=== PATIENT | male | born 1935 | race Caucasian/White ===

== ENCOUNTER → 2017-08-03 06:57 | Day surgery (SDC) | payer MEDICARE ==
[~2017-08-03 06:57] MED LIST: Acetaminophen TAB* 325 MG PO PRN; Buffered Lidocaine 0.9% SYRIN* 5 ML/SYR SYRINGE INTRADERM ONE; Buffered Lidocaine 0.9% SYRIN* 5 ML/SYR SYRINGE ONE; Cyclopentolate 1% OPTH.SOL* 2 ML BTL ONE; Ketorolac 0.5% OPHTH (NF) 0.5 % 5 ML BTL ONE; Lidocaine 1% MPF* 2 ML VIAL ONE; Lidocaine 2% EPI 1:200000 MPF* 20 ML VIAL ONE; Midazolam* 1 MG/ML 2 ML VIAL (2 MG) ONE; Neomycin/Polymy/Dex OPTH.SUSP* MAXITROL 0.1% 5 ML ONE; Phenylephrine 2.5% OPTH.SOL* 2 ML BTL ONE; Povidone Iodine 5% OPTH* 30 ML BTL ONE; Proparacaine 0.5% OPHTH.SOL* 15 ML BTL ONE; acetaZOLAMIDE TAB* 250 MG ONE
[2017-08-03 09:51] VITALS: BP 132/85
--- NOTE | 2017-08-03 13:42 | OP ---
OPERATIVE NOTE: DATE OF OPERATION: 08/03/17 DATE OF : 33 SURGEON: Ulises St M.D. PREOPERATIVE DIAGNOSIS: Cataract, left eye. POSTOPERATIVE DIAGNOSIS: Cataract, left eye. OPERATIVE PROCEDURE: Phacoemulsification, left eye with IOL. PROCEDURE: The patient was brought to the operating room after being given 1/2% Alcaine with epineph rine drops in the preoperative area. The eye was prepped and draped in the usual sterile fashion. S terile drape and eyelid speculum were placed. Again, topical 1/2% Alcaine with epinephrine was given . A paracentesis incision was made at the 3 o'clock position with the No.75 blade. Clear cornea inc ision 2.2 x 2.2-mm was created at the 6 o'clock position starting at the anterior limbus using the 2. 2-mm keratome. The anterior chamber was irrigated with 0.4 mL of 1% non-preservative intracameral li docaine and filled with DisCoVisc. A capsulorrhexis was completed using the cystotome and the Utrata forceps. Hydrodissection was performed with balanced salt solution. The lens nucleus was removed wi th the Phacoemulsification handpiece without incident. Cortex was removed with the irrigation-aspira tion handpiece. The capsular bag was re-inflated using DisCoVisc and an [id number] implant was insert ed with the shooter. The irrigation-aspiration handpiece was used to remove all residual DisCoVisc. The eye was refilled with balanced salt solution and the wound checked and found to be watertight. Topical Maxitrol drops were given. [id number]/[facility] #: [id number]
== END | disposition home or self-care (01) ==
LOC: OREAST 06:57
PROVIDERS: ATTEND Specialist
DX: H25.812 Combined forms of age-related cataract, left eye (principal); H40.051 Ocular hypertension, right eye; Z96.1 Presence of intraocular lens
CPT/HCPCS: A9270-GY; J2250; V2632

== ENCOUNTER 2017-11-05 17:22 | Emergency (ER) | payer MEDICARE ==
--- NOTE | 2017-11-05 17:44 | UC ---
FLU HPI - HPI Summary HPI Summary: 82 y/o male presents to the urgent care c/o sore throat, productive sough, chills, body aches for the past 2 days. Pt thinks he has the flu. He has taken Zicam cold remedy to alleviate symptoms. Cough is producing a yellowish phlegm. Pt has not taken his BP medication yet. Pt denies Chest pain, SOB, fever, chest pain, abdominal pain, N/V/D. - History of Current Complaint Chief Complaint: UCGeneralIllness Stated Complaint: SORE THROAT,COUGH Time Seen by Provider: 11/05/17 17:43 Hx Obtained From: Patient Onset/Duration: Gradual Onset, Lasting Days - 2 days, Still Present Severity Currently: Mild Severity Initially: Mild Pain Intensity: 0 Pain Scale Used: 0-10 Numeric Associated Signs & Symptoms: Positive: Myalgia, Cough - productive, Sore Throat , Nasal Congestion - Risk Factors Influenza Risk Factors: Age 65 y/o or Older - Allergy/Home Medications Allergies/Adverse Reactions: Allergies Allergy/AdvReac Type Severity Reaction Status Date / Time No Known Allergies Allergy Verified 11/05/17 17:36 Home Medications: Home Medications Zolpidem TAB* [Ambien*] 10 mg PO DAILY PRN 11/05/17 [History Confirmed 11/05/17] PMH/Surg Hx/FS Hx/Imm Hx Previously Healthy: Yes Cardiovascular History: Hypertension GI/ History: Gastroesophageal Reflux Other GI/ History: constipation Other Neurological History: Insomnia - Surgical History Surgical History: Yes Surgery Procedure, Year, and Place: 1953 Appendix. 1990 colon surgery, gall bladder. 2002 Prostate surgery. 2004 - Torn rotator cuff repair, left. tonsilectomy as a child - Family History Known Family History: Positive: Hypertension - Social History Occupation: Retired Lives: With Family Alcohol Use: None Substance Use Type: None Smoking Status (MU): Former Smoker Amount Used/How Often: pack a day for 50 years When Did the Patient Quit Smoking/Using Tobacco: 2002 - Immunization History Most Recent Tetanus Shot: 11/25/12 Review of Systems Constitutional: Chills, Fatigue, Other - body aches Skin: Negative Eyes: Negative ENT: Sore Throat, Nasal Discharge, Sinus Congestion Respiratory: Cough - productive Cardiovascular: Negative Gastrointestinal: Negative Genitourinary: Negative Motor: Negative Neurovascular: Negative Musculoskeletal: Negative Neurological: Negative Psychological: Negative Is Patient Immunocompromised?: No All Other Systems Reviewed And Are Negative: Yes Physical Exam Triage Information Reviewed: Yes Vital Signs: Initial Vital Signs Temp 96.9 F 11/05/17 17:32 Pulse 78 11/05/17 17:32 Resp 20 11/05/17 17:32 BP 187/104 11/05/17 17:32 Pulse Ox 97 11/05/17 17:32 - Additional Comments Vital Signs Reviewed: Yes General: well developed, well nourished male sitting in the examining table w/o any apparent distress Eyes: Positive: Conjunctiva Clear - PERRLA, EOMI, fundi grossly normal ENT: Positive: Normal ENT inspection, Hearing grossly normal, Pharynx normal, Nasal congestion - edematous and erythematous nasal mucosa, Nasal drainage - yellowish drainage, TMs normal. Negative: Tonsillar swelling, Tonsillar exudate Neck: Positive: Supple, Nontender, No Lymphadenopathy Respiratory: no orthopnea or dyspnea. Able to speak in full sentences, no retractions or accessory muscle use, no tripod position, stridor, or head bobbing. CTA bilaterally,no wheezes, rhonchi, rales or crackles Cardiovascular: Positive: RRR, No Murmur, Pulses Normal, Brisk Capillary Refill Abdomen Description: Positive: Nontender, No Organomegaly, Soft. Negative: CVA Tenderness (R), CVA Tenderness (L) Bowel Sounds: Positive: Present Musculoskeletal Exam: Normal Musculoskeletal: Positive: Strength Intact, ROM Intact, No Edema Neurological Exam: Normal Psychological Exam: Normal Skin Exam: Normal Flu Course/Dx - Course Course Of Treatment: 82 y/o male presents to the urgent care c/o sore throat, productive sough, chills, body aches for the past 2 days. Pt thinks he has the flu. He has taken Zicam cold remedy to alleviate symptoms. Cough is producing a yellowish phlegm. Pt has not taken his BP medication yet. Pt denies Chest pain , SOB, fever, chest pain, abdominal pain, N/V/D. Hx obtained. Pt with viral syndrome on examination. Most likely Influenza. Influenxa A&B: negative. Chest X -ray ordered, Impression: No active cardiopulmonary disease. Pt will be Tx for influenza prophylactically since exposure to flu recently. Pt Rx Tamiflu, Tessalon and Tylenol PO to alleviates symptoms. First dose given at the clinic tonight. Advised on hand washing and wear a mask to avoid spreading. Pt advised to rest, increase fluid intake, eat well and avoid strenuous exercise. If symptoms do not improve or worsen advised to return to the urgent care or f/ u with her PCP for further evaluation and treatment. Pt's BP is elevated today advised to take his BP medication as soon as he gets home and to decrease salt in diet, monitor BP and f/u with PCP for further management.Pt understood and agreed with plan of care. Pt left the clinic hemodynamically stable, A&OX3. - Differential Dx/Diagnosis Differential Diagnosis/HQI/PQRI: Bronchitis, Influenza, Pneumonia, Upper Respiratory Infection Provider Diagnoses: 1- Viral Syndrome. 2-Cough. 3- Uncontrolled HTN Discharge - Discharge Plan Condition: Stable Disposition: HOME Prescriptions: Acetaminophen TAB* [Tylenol TAB*] 650 mg PO Q6H PRN #20 tab PRN Reason: Pain Benzonatate CAP* [Tessalon 100 MG CAP*] 100 mg PO TID PRN #21 cap PRN Reason: Cough Oseltamivir CAP* [Tamiflu CAP*] 75 mg PO BID #9 cap Patient Education Materials: Viral Syndrome (ED), Low-Sodium Diet (ED) Referrals: Cy Rodriguez MD [Primary Care Provider] - 3 Days Additional Instructions: 1- Please take the full course of the antiviral to avoid resistance. Encourage hand washing and wear a mask to avoid spreading. 2-Please take Tylenol PO q6-8hrs prn as instructed after meals to alleviate fever, and sore throat. Increase fluid intake, eat well, rest and avoid strenuous exercise 3- Take Tessalon tabs PO to alleviate cough 4-If symptoms do not improve or worsen please return to the urgent care or f/u with your PCP in 3 days for further evaluation and treatment. 5-Your BP is elevated today. take your BP medication as soon as you get home. Please decrease salt in your diet, monitor BP and if it continues to be elevated please f/u with your PCP for further management
--- NOTE | 2017-11-05 18:20 | RAD ---
HISTORY: Productive cough, chills and fever COMPARISONS: December 24, 2015 VIEWS: 4: Frontal dual-energy and lateral views of the chest. FINDINGS: CARDIOMEDIASTINAL SILHOUETTE: The cardiomediastinal silhouette is normal. ERNESTO: The ernesto are normal. PLEURA: The costophrenic angles are sharp. No pleural abnormalities are noted. LUNG PARENCHYMA: The lungs are clear. ABDOMEN: The upper abdomen is clear. There is no subphrenic gas. BONES AND SOFT TISSUES: Degenerative changes are noted along the spine. OTHER: None. IMPRESSION: NO ACTIVE CARDIOPULMONARY DISEASE.
[2017-11-05 18:30] VITALS: BP 170/88
[2017-11-05] MEDS ORDERED: Oseltamivir CAP* 75 MG CAP PO ONE (18:31)
== END 2017-11-05 18:40 | disposition home or self-care (01) ==
LOC: UCEAST 17:22
DX: B34.9 Viral infection, unspecified (principal); R05 Cough; I10 Essential (primary) hypertension; K21.9 Gastro-esophageal reflux disease without esophagitis; K59.00 Constipation, unspecified; G47.00 Insomnia, unspecified; Z87.891 Personal history of nicotine dependence
CPT/HCPCS: 71046; 87502; 99212; A9270-GY; G0463

== ENCOUNTER 2018-05-11 09:59 | Inpatient (IN) | payer MEDICARE ==
--- NOTE | 2018-05-01 13:00 | HP ---
HISTORY AND PHYSICAL: DATE OF SURGERY: 05/11/18 DATE OF OFFICE VISIT: 04/28/18 SURGEON: Kelly Damian MD * (DICTATED BY PAULA OSUNA) PROCEDURE: Left total knee arthroplasty. CHIEF COMPLAINT: Left knee pain. HISTORY OF PRESENT ILLNESS: Mr. Mclaughlin is an 82-year-old gentleman with continued complaints of left knee pain. He has failed conservative treatment, elected to proceed with a left total knee arthroplasty which is scheduled for 05/11/18. PAST MEDICAL HISTORY: Hypertension, hyperlipidemia, GERD, colon cancer, and prostate cancer. PAST SURGICAL HISTORY: Colectomy, appendectomy, cholecystectomy, prostatectomy , tonsillectomy, and right knee scope. CURRENT MEDICATIONS: 1. Diltiazem 120 mg daily. 2. Omeprazole 40 mg daily. 3. Prevalite 4 g daily. 4. Zolpidem tartrate 10 mg half a tab every night q.h.s. 5. Cholestyramine. ALLERGIES: None. FAMILY HISTORY: Coronary artery disease and cancer. SOCIAL HISTORY: This is an 82-year-old gentleman who lives with his . He does not smoke, or use drugs. REVIEW OF SYSTEMS: A complete 14-point review of systems was reviewed with the patient and it was positive for GERD. He denies history of DVT, PE, hepatitis, HIV, or anesthesia problems. PHYSICAL EXAMINATION GENERAL: He is well-developed, well-nourished, in no acute distress. VITAL SIGNS: He stands 70 inches tall, weighs 192 pounds. Blood pressure 130/ 76, heart rate 79. HEENT: Normocephalic, atraumatic. NECK: Supple. No palpable lymph nodes. PULMONARY: Lungs are clear to auscultation bilaterally. CARDIO: Regular rate and rhythm. Strong S1 and S2. ABDOMEN: Soft, nontender, nondistended. NEUROLOGIC: Alert and oriented x3. MUSCULOSKELETAL: Left lower extremity, skin is intact. There are no open wounds or abrasions. He has moderate joint effusions and tenderness over the medial and lateral joint line. Range of motion 10 to 120 degrees of flexion, 2 + dorsalis pedis pulses, intact sensation, and his lower extremity muscular group strengths are intact at 5/5. ASSESSMENT AND PLAN: Mr. Mclaughlin is an 82-year-old gentleman with endstage osteoarthritis of the left knee, who has failed conservative treatment and elected to proceed with a left total knee arthroplasty, which is scheduled with Dr. Damian on 05/11/18. Dr. Damian discussed the risks, and benefits of the surgery at today's visit and all of his questions were answered. He will follow up with Dr. Damian in 2 weeks after the surgery. PAULA OSUNA [id number]/[facility] #: [id number] BO
[~2018-05-11 09:59] MED LIST changes: +Acetaminophen TAB* 325 MG PO ONE; -Acetaminophen TAB* 325 MG PO PRN; -Buffered Lidocaine 0.9% SYRIN* 5 ML/SYR SYRINGE ONE; -Cyclopentolate 1% OPTH.SOL* 2 ML BTL ONE; +Gabapentin CAP(*) 300 MG PO ONE; -Ketorolac 0.5% OPHTH (NF) 0.5 % 5 ML BTL ONE; -Lidocaine 1% MPF* 2 ML VIAL ONE; -Lidocaine 2% EPI 1:200000 MPF* 20 ML VIAL ONE; -Midazolam* 1 MG/ML 2 ML VIAL (2 MG) ONE; -Neomycin/Polymy/Dex OPTH.SUSP* MAXITROL 0.1% 5 ML ONE; -Phenylephrine 2.5% OPTH.SOL* 2 ML BTL ONE; -Povidone Iodine 5% OPTH* 30 ML BTL ONE; -Proparacaine 0.5% OPHTH.SOL* 15 ML BTL ONE; +Tranexamic Acid 1,000 MG in NS 0.9% 50 ML* (outpatient use) IV SCH; -acetaZOLAMIDE TAB* 250 MG ONE; +celeCOXIB CAP* 100 MG PO ONE
--- OUTSIDE RECORDS SUMMARY | 2018-05-11 10:05 | XMS REPORT ---
:1935 External Reference #:[id number] Author Organization [employer] Address [address] [place] [address] Phone [phone] Care Team Providers Name Role Phone Cy Rodriguez III, MD Primary Care Physician Unavailable Payers Type Date Identification Numbers Payment Provider Subscriber Medicare Primary Policy Number: [id number] Medicare Luís A Clapper PayID: [id number] [address] [facility] [address] Medigap Part B Expires: 2018 Policy Number: [id number] Medicare Luís A Clapper PayID: [id number] [address] [place] [address] Medigap Part B Policy Number: [id number] [facility] Luís A Clapper PayID: [id number] [address] [place] [address] Commercial PayID: [id number] Medicare D - Drug Luís A Clapper Plan Medigap Part B Effective: Policy Number: [facility] Luís A Clapper 2012 [id number] (Oon) Expires: 2014 PayID: [id number] [address] [place] [address] Medigap Part B Expires: 2012 Policy Number: [facility] Luís Buck Clapper [id number] Group Number: [id number] [address] [address] PayID: [id number] NANI Thakkar [id number] Problems Date Description Provider Status Onset: 04/30/2009 Mixed hyperlipidemia Cy Rodriguez M.D. Active Onset: 03/13/2012 Benign essential hypertension Cy Rodriguez M.D. Active Onset: 03/13/2012 Essential tremor Cy Rodriguez M.D. Active Onset: 02/08/2012 Gastroesophageal reflux disease Cy Rodriguez M.D. Active Onset: 02/08/2012 Skin sensation disturbance Cy Rodriguez M.D. Active Onset: 11/12/2014 Essential tremor Cy Rodriguez M.D. Active Onset: 05/26/2015 Essential hypertension Cy Rodriguez M.D. Active Onset: 12/16/2015 History of malignant neoplasm of Cy Rodriguez M.D. Active prostate Onset: 12/16/2015 History of malignant neoplasm of Cy Rodriguez M.D. Active colon Onset: 04/03/2018 Localized, primary osteoarthritis Kelly Damian M.D. Active Family History Date Family Member(s) Problem(s) Comments General Hypertension General Cancer Father due to Natural Causes () - (+) decline after a cardiac arrest the year before; age 83 Mother due to CHF () - age 87 Social History Type Date Description Comments Lives With Spouse Occupation Retired Cigarette Use Former Cigarette Smoker Quit in his late 60s; max 1ppd. Began age 11 ETOH Use 04/25/2013 Denies alcohol use Smoking Patient is a former smoker Quit when his was 67 yrs old, started at age 13, smoked 1ppd. Exercise Type/Frequency Exercises regularly active around the house daily. Walking linited by knee pains, but able to go up stairs with no exertional sx Allergies, Adverse Reactions, Alerts Date Description Reaction Status Severity Comments 11/06/2010 NKDA active 09/12/2007 NKDA inactive Medications Medication Date Status Form Strength Qnty SIG Indications Ordering Provider Diltiazem HCL ER 12/25 Active Caps ER 120mg 90cap 1 by mouth Cy Orellana 24HR s every day Lory Rodriguez Omeprazole 03/[address] 40mg 90cap take one Cy Orellana s capsule by luke Rodriguez once M.DMana daily Prevalite 04/27 Active Packet 4gm 90uni mix 1 Cy Orellana ts packet in Jennifer, fluid and M.D. drink daily Zolpidem 10/07 Active Tablets 10mg 30tab 09/06 to 1 Cy Orellana Tartrate /2009 s tab every Jennifer, night at M.D. bedtime as needed Cholestyramine Active Unknown / Gabapentin 08/23 Hx Capsules 300mg 180ca 2 by mouth R20.8 Cy Orellana ps three times Jennifer, - a day M.D. 04/19 Mysoline 06/16 Hx Tablets 50mg 180ta 2 by mouth G25.0 yC EMana bs daily at Jennifer, - bedtime M.D. 07/20 Propranolol HCL 12/15 Hx Tablets 60mg 30tab 1 by mouth Cy Orellana s every Jennifer, - morning M.D. 06/16 Atenolol 10/13 Hx Tablets 25mg 90tab 1 by mouth G25.0 Cy EMana s every day Gera Rodriguez M.Milly 12/15 Inderal LA 11/12 Hx Caps ER 60mg 90cap 1 by mouth G25.0 Cy Orellana 24HR s once daily Gera Rodriguez M.DMana 10/13 Diltiazem HCL 11/12 Hx Tablets 120mg 90tab 1 by mouth Cy Orellana s every day Gera Rodriguez M.DMana 12/25 Cardizem CD 04/25 Hx Caps ER 240mg 90cap 1 po qd 401.1 Cy Orellana 24HR s Gera Rodriguez M.D. 11/12 Zolpidem 08/15 Hx Tablets 10mg 30tab 09/06 to Cy Castañedatrate s every night Jennifer, - at bedtime M.D. 01/04 as needed Cardizem CD 08/15 Hx Caps ER 120mg 90cap 1 po qd 401.1 Cy Orellana 24HR s Gera Rodriguez M.D. 04/25 Metoprolol 03/13 Hx Tablets 25mg 180ta 1 po qd 401.1 Cy E. Tartrate /2011 bs Gera Rodriguez.Milly 08/15 Valtrex 11/11 Hx Tablets 1gm 21tab 1 po q8h 053.9 Cy Orellana /2010 Gera Schofield M.D. 02/07 Tylenol/Codeine 11/11 Hx Tablets 300-30mg 40tab 1-2 po qid 053.9 Cy E. # Gera Hughes M.D. 02/07 Cholestyramine 10/29 Hx Packet 4gm 90Pac 1 packet qd Cy E. Gera Roman M.D. 04/27 Omeprazole 07/[address] 20mg 90cap 1 po qd Cy E. Gera Schofield M.D. 03/30 Lamisil 10/30 Hx Tablets 250mg 42tab 1 po for 6 Gera Linda M.D. 04/29 Flonase 10/30 Hx Suspension 50mcg/Act 1Bott 1 . le intranasal Gera Rodriguez M.D. 03/31 nostril daily Cholestyramine Hx Packet 4gm 90Pac 1 packet qd Cy E. / Gera Roman M.D. 10/29 Cyanocobalamin Hx Solution 1000mcg/M 20ml 1 ml im q Cy E. / L Gera Doss M.D. 03/18 Prilosec [address] 20mg 90cap 1 po qd Cy E. / Gera Schofield M.D. 03/31 Vitamin B-12 Hx Tablets 1000mcg 1 by mouth Unknown /0000 every day - 04/19 Medications Administered in Office Medication Date Status Form Strength Qnty SIG Indications Ordering Provider Depomedrol Administered Injection Kelly 40MG Jeremie Damian M.D. Immunizations CPT Code Status Date Vaccine Lot # [id number] Given 07/20/2017 Tdap - Tetanus/Diptheria/Acellular Pertussis [id number] 75536 Given 05/31/2017 Influenza Virus Vaccine, Quadrivalent, Split, Preservative Free 50552 Given 06/16/2016 Influenza Virus Vaccine, Quadrivalent, Split [id number] Virus, Im Use 05006 Given 11/12/2014 Pneumococcal Conjugate Vaccine 13 Valent For [id number] Intramuscular Use 31916 Given 05/25/2014 Fluzone High Dose 58446 Given 07/16/2013 Flu Vaccine Split Virus Preservative Free For Indiv 3Yr Older [id number] Given 05/15/2012 Fluzone Vaccine [id number] 44359 Given 05/27/2011 Influenza Virus 3Yrs & Over 37206 Given 03/18/2008 Tetanus And Diptheria (Td) For Adult Use Preservative Free 62742 Given 03/18/2008 Tetanus And Diptheria (Td) For Adult Use [id number] Preservative Free 39089 Given 09/05/2002 Pneumonia Vaccine [id number] Vital Signs Date Vital Result Comment 04/28/2018 Height 70.25 inches 5'10.25" Weight 209.50 lb Heart Rate 79 /min BP Systolic 130 mmHg BP Diastolic 76 mmHg Respiratory Rate 18 /min Body Temperature 97.8 F Pain Level 4 BMI (Body Mass Index) 29.8 kg/m2 04/20/2018 Height 70.25 inches 5'10.25" Weight 210.00 lb Heart Rate 71 /min BP Systolic Sitting 140 mmHg BP Diastolic Sitting 82 mmHg O2 % BldC Oximetry 94 % BMI (Body Mass Index) 29.9 kg/m2 04/03/2018 Height 70.25 inches 5'10.25" Weight 212.00 lb Heart Rate 80 /min BP Systolic 140 mmHg BP Diastolic 76 mmHg BMI (Body Mass Index) 30.2 kg/m2 08/23/2017 Height 69.5 inches 5'9.50" Weight 214.00 lb Heart Rate 87 /min BP Systolic Sitting 138 mmHg BP Diastolic Sitting 90 mmHg Body Temperature 97.4 F Pain Level 5 above knees bilat/numb feet O2 % BldC Oximetry 96 % BMI (Body Mass Index) 31.1 kg/m2 07/20/2017 Height 69.75 inches 5'9.75" Weight 215.00 lb Heart Rate 88 /min BP Systolic Sitting 130 mmHg BP Diastolic Sitting 78 mmHg Body Temperature 98.2 F O2 % BldC Oximetry 96 % BMI (Body Mass Index) 31.1 kg/m2 06/16/2016 Weight 218.00 lb Heart Rate 87 /min BP Systolic Sitting 118 mmHg BP Diastolic Sitting 64 mmHg Body Temperature 97.3 F O2 % BldC Oximetry 97 % 01/05/2016 Weight 219.00 lb Heart Rate 86 /min BP Systolic Sitting 155 mmHg BP Diastolic Sitting 94 mmHg Body Temperature 96.9 F 12/16/2015 Height 70 inches 5'10" Weight 215.00 lb Heart Rate 59 /min BP Systolic 150 mmHg BP Diastolic 80 mmHg Body Temperature 97.7 F O2 % BldC Oximetry 97 % BMI (Body Mass Index) 30.8 kg/m2 05/26/2015 Height 70 inches 5'10" Weight 214.00 lb Heart Rate 60 /min BP Systolic Sitting 146 mmHg BP Diastolic Sitting 88 mmHg Body Temperature 97.1 F O2 % BldC Oximetry 98 % BMI (Body Mass Index) 30.7 kg/m2 11/12/2014 Height 70 inches 5'10" Weight 211.00 lb Heart Rate 72 /min BP Systolic Sitting 132 mmHg BP Diastolic Sitting 74 mmHg BMI (Body Mass Index) 30.3 kg/m2 08/09/2013 Height 70 inches 5'10" Weight 212.00 lb Heart Rate 80 /min BP Systolic Sitting 124 mmHg BP Diastolic Sitting 80 mmHg BMI (Body Mass Index) 30.4 kg/m2 04/25/2013 Height 69.75 inches 5'9.75" Weight 206.25 lb Heart Rate 80 /min BP Systolic Sitting 144 mmHg BP Diastolic Sitting 86 mmHg BMI (Body Mass Index) 29.8 kg/m2 08/15/2012 Height 70 inches 5'10" Weight 213.00 lb Heart Rate 72 /min BP Systolic Sitting 138 mmHg BP Diastolic Sitting 84 mmHg BMI (Body Mass Index) 30.6 kg/m2 05/15/2012 Height 70 inches 5'10" Weight 206.00 lb Heart Rate 60 /min BP Systolic Sitting 160 mmHg BP Diastolic Sitting 90 mmHg BMI (Body Mass Index) 29.6 kg/m2 03/13/2012 Height 69.75 inches 5'9.75" Weight 208.50 lb Heart Rate 80 /min BP Systolic Sitting 146 mmHg home monitor 154/99 BP Diastolic Sitting 84 mmHg home monitor 154/99 BMI (Body Mass Index) 30.1 kg/m2 02/08/2012 Height 70.25 inches 5'10.25" Weight 208.25 lb Heart Rate 76 /min BP Systolic Sitting 152 mmHg BP Diastolic Sitting 90 mmHg BMI (Body Mass Index) 29.7 kg/m2 11/11/2010 Weight 212.00 lb Heart Rate 90 /min BP Systolic Sitting 140 mmHg BP Diastolic Sitting 90 mmHg Body Temperature 97.0 F 11/06/2010 Heart Rate 80 /min BP Systolic 152 mmHg BP Diastolic 80 mmHg 10/29/2010 Height 70 inches 5'10" Weight 212.00 lb Heart Rate 96 /min BP Systolic 148 mmHg BP Diastolic 80 mmHg BMI (Body Mass Index) 30.4 kg/m2 03/31/2010 Weight 212.00 lb Heart Rate 82 /min BP Systolic Sitting 150 mmHg BP Diastolic Sitting 98 mmHg 11/26/2009 Weight 214.00 lb Heart Rate 80 /min BP Systolic 140 mmHg BP Diastolic 80 mmHg 10/07/2009 Height 71 inches 5'11" Weight 208.00 lb Heart Rate 72 /min BP Systolic Sitting 130 mmHg BP Diastolic Sitting 82 mmHg BMI (Body Mass Index) 29.0 kg/m2 04/29/2009 Weight 210.00 lb Heart Rate 76 /min BP Systolic Sitting 130 mmHg BP Diastolic Sitting 90 mmHg 10/30/2008 Height 71 inches 5'11" Weight 210.00 lb Heart Rate 64 /min BP Systolic Sitting 122 mmHg BP Diastolic Sitting 80 mmHg BMI (Body Mass Index) 29.3 kg/m2 03/18/2008 Height 71 inches 5'11" Weight 208.00 lb Heart Rate 72 /min BP Systolic Sitting 160 mmHg BP Diastolic Sitting 90 mmHg BMI (Body Mass Index) 29.0 kg/m2 09/13/2007 Height 71 inches 5'11" Weight 208.00 lb Heart Rate 88 /min BP Systolic Sitting 124 mmHg BP Diastolic Sitting 80 mmHg BMI (Body Mass Index) 29.0 kg/m2 Results Test Date Test Result H/L Range Note CBC Auto Diff 04/28/2018 White Blood Count 9.7 10^3/uL 3.5-10.8 Red Blood Count 4.88 10^6/uL 4.00-5.40 Hemoglobin 14.6 g/dL 14.0-18.0 Hematocrit 45 % 42-52 Mean Corpuscular Volume 91 fL 80-94 Mean Corpuscular Hemoglobin 30 pg 27-31 Mean Corpuscular HGB Conc 33 g/dL 31-36 Red Cell Distribution Width 16 % High 10.5-15 Platelet Count 354 10^3/uL 150-450 Mean Platelet Volume 6.9 um3 Low 7.4-10.4 Abs Neutrophils 6.8 10^3/uL 1.5-7.7 Abs Lymphocytes 2.1 10^3/uL 1.0-4.8 Abs Monocytes 0.8 10^3/uL 0-0.8 Abs Eosinophils 0 10^3/uL 0-0.6 Abs Basophils 0.1 10^3/uL 0-0.2 Abs Nucleated RBC 0 10^3/uL Granulocyte % 69.4 % 38-83 Lymphocyte % 21.3 % Low 25-47 Monocyte % 8.1 % High 0-7 Eosinophil % 0.5 % 0-6 Basophil % 0.7 % 0-2 Nucleated Red Blood Cells % 0.1 Urinalysis Profile 04/28/2018 Urine Color Yellow Urine Appearance Clear Urine Specific [facility] 1.016 1.010-1.030 Urine pH 5.0 5-9 Urine Urobilinogen Negative Negative Urine Ketones Negative Negative Urine Protein 1+(30 mg/dL) Negative Urine Leukocytes Negative Negative Urine Blood 1+ Negative Urine Nitrite Negative Negative Urine Bilirubin Negative Negative Urine Glucose Negative Negative Urine White Blood Cell Absent Absent Urine Red Blood Cell 1+(3-5/hpf) Absent Urine Bacteria Absent Absent Inr/Protime 04/28/2018 Inr 0.83 0.77-1.02 Laboratory test finding 04/28/2018 Partial Thrombo Time 28.4 seconds 26.0 -36.3 PTT Comp Metabolic Panel 04/28/2018 Sodium 140 mmol/L 135-145 Potassium 4.7 mmol/L 3.5-5.0 Chloride 107 mmol/L 101-111 Co2 Carbon Dioxide 27 mmol/L 22-32 Anion Gap 6 mmol/L 2-11 Glucose 75 mg/dL 70-100 Blood Urea Nitrogen 18 mg/dL 6-24 Creatinine 1.09 mg/dL 0.67-1.17 BUN/Creatinine Ratio 16.5 8-20 Calcium 9.9 mg/dL 8.6-10.3 Total Protein 6.8 g/dL 6.4-8.9 Albumin 4.3 g/dL 3.2-5.2 Globulin 2.5 g/dL 2-4 Albumin/Globulin Ratio 1.7 1-3 Total Bilirubin 0.50 mg/dL 0.2-1.0 Alkaline Phosphatase 95 U/L 34-104 Alt 27 U/L 7-52 Ast 25 U/L 13-39 Egfr Non- 64.6 >60 Egfr 78.2 >60 1 Type & Screen 04/28/2018 Patient Blood Type O Negative Antibody Screen NEGATIVE Urinalysis Profile 04/24/2018 Urine Color Lolly Urine Appearance Turbid Urine Specific [facility] 1.021 1.010-1.030 Urine pH 5.0 5-9 Urine Urobilinogen Negative Negative Urine Ketones Negative Negative Urine Protein 1+(30 mg/dL) Negative Urine Leukocytes Negative Negative Urine Blood 1+ Negative Urine Nitrite Negative Negative Urine Bilirubin Negative Negative Urine Glucose Negative Negative Urine White Blood Cell Trace(0-5/hpf) Absent Urine Red Blood Cell Trace(0-2/hpf) Absent Urine Bacteria Absent Absent Urine Culture And 04/24/2018 Urine Culture SEE RESULT BELOW 2 Sensitivities Basic Metabolic Panel 04/24/2018 Sodium 140 mmol/L 135-145 Potassium 4.2 mmol/L 3.5-5.0 Chloride 108 mmol/L 101-111 Co2 Carbon Dioxide 25 mmol/L 22-32 Anion Gap 7 mmol/L 2-11 Glucose 112 mg/dL High 70-100 Blood Urea Nitrogen 21 mg/dL 6-24 Creatinine 1.21 mg/dL High 0.67-1.17 BUN/Creatinine Ratio 17.4 8-20 Calcium 9.4 mg/dL 8.6-10.3 Egfr Non- 57.3 >60 Egfr 69.3 >60 3 CBC Auto Diff 04/24/2018 White Blood Count 8.6 10^3/uL 3.5-10.8 Red Blood Count 4.66 10^6/uL 4.00-5.40 Hemoglobin 14.0 g/dL 14.0-18.0 Hematocrit 42 % 42-52 Mean Corpuscular Volume 90 fL 80-94 Mean Corpuscular Hemoglobin 30 pg 27-31 Mean Corpuscular HGB Conc 34 g/dL 31-36 Red Cell Distribution Width 16 % High 10.5-15 Platelet Count 357 10^3/uL 150-450 Mean Platelet Volume 7.4 um3 7.4-10.4 Abs Neutrophils 5.7 10^3/uL 1.5-7.7 Abs Lymphocytes 2.1 10^3/uL 1.0-4.8 Abs Monocytes 0.7 10^3/uL 0-0.8 Abs Eosinophils 0.1 10^3/uL 0-0.6 Abs Basophils 0.1 10^3/uL 0-0.2 Abs Nucleated RBC 0 10^3/uL Granulocyte % 66.1 % 38-83 Lymphocyte % 24.4 % Low 25-47 Monocyte % 8.0 % High 0-7 Eosinophil % 0.9 % 0-6 Basophil % 0.6 % 0-2 Nucleated Red Blood Cells % 0 Rapid Influenza A & B 11/05/2017 Influenza A Molecular NEGATIVE Negative 4 Molecular Influenza B Molecular NEGATIVE Negative Laboratory test finding 07/21/2017 TSH (Thyroid Stim Horm) 4.69 mcIU/mL 0.34-5.60 Lipid Profile 07/21/2017 Triglycerides 208 mg/dL 5 (Trig/Chol/HDL) Cholesterol 167 mg/dL 6 HDL Cholesterol 49.5 mg/dL 7 LDL Cholesterol 76 mg/dL 8 Vitamin B12 And Folate Serum 07/21/2017 Vitamin B12 302 pg/mL 180-914 9 Folic Acid (Folate) 7.49 ng/mL >3.99 Laboratory test finding 07/21/2017 Magnesium 2.0 mg/dL 1.9-2.7 CBC Auto Diff 07/21/2017 White Blood Count 9.4 10^3/uL 3.5-10.8 Red Blood Count 4.73 10^6/uL 4.0-5.4 Hemoglobin 14.1 g/dL 14.0-18.0 Hematocrit 43 % 42-52 Mean Corpuscular Volume 90 fL 80-94 Mean Corpuscular Hemoglobin 30 pg 27-31 Mean Corpuscular HGB Conc 33 g/dL 31-36 Red Cell Distribution Width 15 % 10.5-15 Platelet Count 383 10^3/uL 150-450 Mean Platelet Volume 7 um3 Low 7.4-10.4 Abs Neutrophils 5.9 10^3/uL 1.5-7.7 Abs Lymphocytes 2.4 10^3/uL 1.0-4.8 Abs Monocytes 0.8 10^3/uL 0-0.8 Abs Eosinophils 0.3 10^3/uL 0-0.6 Abs Basophils 0.1 10^3/uL 0-0.2 Abs Nucleated RBC 0.01 10^3/uL Granulocyte % 62.2 % 38-83 Lymphocyte % 25.5 % 25-47 Monocyte % 8.8 % 1-9 Eosinophil % 2.8 % 0-6 Basophil % 0.7 % 0-2 Nucleated Red Blood Cells % 0.1 Comp Metabolic Panel 07/21/2017 Sodium 141 mmol/L 133-145 Potassium 4.4 mmol/L 3.5-5.0 Chloride 106 mmol/L 101-111 Co2 Carbon Dioxide 29 mmol/L 22-32 Anion Gap 6 mmol/L 2-11 Glucose 86 mg/dL 70-100 Blood Urea Nitrogen 14 mg/dL 6-24 Creatinine 1.12 mg/dL 0.67-1.17 BUN/Creatinine Ratio 12.5 8-20 Calcium 9.4 mg/dL 8.6-10.3 Total Protein 6.4 g/dL 6.4-8.9 Albumin 4.0 g/dL 3.2-5.2 Globulin 2.4 g/dL 2-4 Albumin/Globulin Ratio 1.7 1-3 Total Bilirubin 0.50 mg/dL 0.2-1.0 Alkaline Phosphatase 76 U/L 34-104 Alt 16 U/L 7-52 Ast 20 U/L 13-39 Egfr Non- 62.8 >60 Egfr 80.7 >60 10 Comp Metabolic Panel 06/08/2016 Sodium 138 mmol/L 133-145 Potassium 4.4 mmol/L 3.5-5.0 Chloride 105 mmol/L 101-111 Co2 Carbon Dioxide 27 mmol/L 22-32 Anion Gap 6 mmol/L 2-11 Glucose 84 mg/dL 70-100 Blood Urea Nitrogen 14 mg/dL 6-24 Creatinine 1.12 mg/dL 0.67-1.17 BUN/Creatinine Ratio 12.5 8-20 Calcium 9.5 mg/dL 8.6-10.3 Total Protein 6.4 g/dL 6.4-8.9 Albumin 4.0 g/dL 3.2-5.2 Globulin 2.4 g/dL 2-4 Albumin/Globulin Ratio 1.7 1-3 Total Bilirubin 0.60 mg/dL 0.2-1.0 Alkaline Phosphatase 79 U/L 34-104 Alt 16 U/L 7-52 Ast 20 U/L 13-39 Egfr Non- 62.9 >60 Egfr 80.9 >60 11 Lipid Profile (Trig/Chol/HDL) 06/08/2016 Triglycerides 233 mg/dL 12 Cholesterol 169 mg/dL 13 HDL Cholesterol 47.3 mg/dL 14 LDL Cholesterol 75 mg/dL 15 Comp Metabolic Panel 11/05/2014 Sodium 137 mmol/L 133-145 Potassium 4.2 mmol/L 3.5-5.0 Chloride 103 mmol/L 101-111 Co2 Carbon Dioxide 28 mmol/L 22-32 Anion Gap 6 mmol/L 2-11 Glucose 83 mg/dL 70-100 Blood Urea Nitrogen 13 mg/dL 6-24 Creatinine 1.17 mg/dL 0.67-1.17 BUN/Creatinine Ratio 11.1 8-20 Calcium 9.3 mg/dL 8.6-10.3 Total Protein 6.3 g/dL Low 6.4-8.9 Albumin 3.8 g/dL 3.2-5.2 Globulin 2.5 g/dL 2-4 Albumin/Globulin Ratio 1.5 1-3 Total Bilirubin 0.40 mg/dL 0.2-1.0 Alkaline Phosphatase 88 U/L 34-104 Alt 16 U/L 7-52 Ast 19 U/L 13-39 Egfr Non- 60.0 >60 Egfr 77.1 >60 16 Lipid Profile (Trig/Chol/HDL) 11/05/2014 Triglycerides 305 mg/dL 17 Cholesterol 151 mg/dL 18 HDL Cholesterol 34.4 mg/dL 19 LDL Cholesterol 56 mg/dL 20 Comp Metabolic Panel 04/17/2013 Sodium 139 mmol/L 133-145 Potassium 4.6 mmol/L 3.5-5.0 Chloride 108 mmol/L 101-111 Co2 Carbon Dioxide 26.0 mmol/L 22-32 Anion Gap 5.0 mmol/L 2-11 Glucose 91 mg/dL 70-100 Blood Urea Nitrogen 14 mg/dL 6-24 Creatinine 1.10 mg/dL 0.50-1.40 BUN/Creatinine Ratio 12.7 8-20 Calcium 9.4 mg/dL 8.1-9.9 Total Protein 6.2 g/dL 6.2-8.1 Albumin 3.9 g/dL 3.2-5.2 Globulin 2.3 g/dL 2-4 Albumin/Globulin Ratio 1.7 1-3 Total Bilirubin 0.9 mg/dL 0.4-1.5 Alkaline Phosphatase 84 U/L 30-110 Alt 19 U/L 14-54 Ast 27 U/L 12-42 Egfr Non- 64.7 >60 Egfr 83.3 >60 21 Lipid Profile (Trig/Chol/HDL) 04/17/2013 Triglycerides 232 mg/dL High 40- 200 Cholesterol 170 mg/dL Less than 200 HDL Cholesterol 44 mg/dL 40-60 22 Cholesterol/HDL Ratio 3.9 Average 1-4.44 LDL Cholesterol 79.6 Less Than 100 23 Lipid Profile (Trig/Chol/HDL) 02/04/2012 Triglyceride 193 mg/dL 40-200 Cholesterol 165 mg/dL Less Than 200 24 High Density Lipoprotein 46 mg/dL 40-60 25 Cholesterol/HDL Ratio 3.59 AVERAGE 1-4.97 Low Density Lipoprotein 80 mg/dL Less Than 100 26 Comp Metabolic Panel 02/04/2012 Sodium 137 mmol/L 135-145 Potassium 4.3 mmol/L 3.5-5.0 Chloride 105 mmol/L 101-111 Co2 (Carbon Dioxide) 23.0 mmol/L 22-32 Anion Gap 9.0 mmol/L 2-11 27 Glucose 92 mg/dL 70-100 BUN 14 mg/dL 6-24 Creatinine 1.1 mg/dL 0.50-1.40 One Over Creatinine 0.90 BUN/Creatinine Ratio 12.7 8-20 Calcium 9.2 mg/dL 8.1-9.9 Total Protein 6.0 GM/DL Low 6.2-8.1 Albumin 3.9 GM/DL 3.2-5.2 Globulin 2.1 GM/DL 2-4 Albumin/Globulin Ratio 1.9 1-3 Bilirubin Total 0.7 mg/dL 0.4-1.5 28 Alkaline Phosphatase 90 U/L 39-117 Alt (SGPT) 19 U/L 17-63 Ast (Sgot) 25 U/L 12-42 eGFR Non- 64.9 > 60 eGFR 83.5 > 60 29 Laboratory test finding 12/15/2011 PSA,Diagnostic 0.0 NG/ML 0-4 30 CBC With Electronic Diff 11/05/2010 White Blood Count 9.0 CUMM 4.8-10.8 Red Cell Count 4.88 CUMM 4.6-6.2 Hemoglobin 14.9 g/dL 14.0-18.0 Hematocrit 45 % 42-52 Mean Corpuscular Volume 92 um3 80-94 Mean Corpuscular Hemoglob 31 pg 27-31 Mean Corpuscular HGB Cone 33 g/dL 32-36 Redcell Distribution WDTH 14 % 10.5-15 Platelet Count 390 CUMM 150-450 Mean Platelet Volume 6.8 um3 Low 7.4-10.4 Gran % 64.2 % 38-83 Lymph % 26.3 % 25-47 Mononuclear % 7.0 % 1-9 Eosinophil % 1.6 % 0-6 Basophil % 0.9 % 0-2 Abs Lymphs 2.4 1.0-4.8 Abs Mononuclear 0.6 0-0.8 Absolute Neutrophil Count 5.8 1.5-7.7 Abs Eosinophils 0.1 0-0.6 Abs Basophils 0.1 0-0.2 Protime 11/05/2010 Inr 0.90 0.82-1.17 31 Protime 10.6 SEC 10.2-14.8 32 Laboratory test finding 11/05/2010 PTT (Aptt) 30.0 25.15-38.53 Comp Metabolic Panel 11/05/2010 Sodium 138 mmol/L 135-145 Potassium 4.4 mmol/L 3.5-5.0 Chloride 107 mmol/L 101-111 Co2 (Carbon Dioxide) 24.0 mmol/L 22-32 Anion Gap 7.0 mmol/L 2-11 33 Glucose 97 mg/dL 70-100 BUN 13 mg/dL 6-24 Creatinine 1.10 mg/dL 0.50-1.40 One Over Creatinine 0.90 BUN/Creatinine Ratio 11.8 8-20 Calcium 9.3 mg/dL 8.1-9.9 Total Protein 6.7 GM/DL 6.2-8.1 Albumin 4.2 GM/DL 3.2-5.2 Globulin 2.5 GM/DL 2-4 Albumin/Globulin Ratio 1.7 1-3 Bilirubin Total 0.7 mg/dL 0.4-1.5 34 Alkaline Phosphatase 80 U/L 39-117 Alt (SGPT) 22 U/L 17-63 Ast (Sgot) 28 U/L 12-42 eGFR Non- 65.1 > 60 eGFR 83.7 > 60 35 Laboratory test finding 11/05/2010 Troponin-I 0.01 NG/ML 0-0.06 36 Urinalysis 11/05/2010 Ua Color YELLOW Yellow Appearance-Urine CLEAR Clear Specific [facility]-Ur 1.011 1.010-1.030 Esterase-Urine NEGATIVE Negative Nitrite NEGATIVE Negative [id number] NEGATIVE Negative Protein-Urine NEGATIVE Negative PH-Urine 5.5 5-9 Blood-Urine NEGATIVE Negative Ketones-Urine NEGATIVE Negative Bilirubin-Ur NEGATIVE Negative Glucose-Urine NEGATIVE Negative Laboratory test finding 10/29/2010 PSA,Diagnostic 0.0 NG/ML 0-4 37 CBC With Manual Diff 11/10/2009 White Blood Count 8.6 CUMM 4.8-10.8 Red Cell Count 4.53 CUMM Low 4.6-6.2 Hemoglobin 13.7 g/dL Low 14.0-18.0 Hematocrit 42 % 42-52 Mean Corpuscular Volume 93 um3 80-94 Mean Corpuscular Hemoglob 30 pg 27-31 Mean Corpuscular HGB Cone 33 g/dL 32-36 Redcell Distribution WDTH 14 % 10.5-15 Platelet Count 376 CUMM 150-450 Mean Platelet Volume 6.6 um3 Low 7.4-10.4 Polysegmented Neutrophil 74 % 38-83 Band Neutrophil 1 % 0-8 Lymphocyte 18 % Low 25-47 Monocyte 7 % 0-13 Absolute Neutrophil Count 6.4 RBC Morphology NORMAL Liver Function Panel 11/10/2009 Total Protein 5.9 GM/DL Low 6.2-8.1 Albumin 3.7 GM/DL 3.2-5.2 Globulin 2.2 GM/DL 2-4 Albumin/Globulin Ratio 1.7 1-3 Bilirubin Total 0.9 mg/dL 0.4-1.5 38 Bilirubin Direct 0.1 mg/dL 0.1-0.5 Indirect Bilirubin 0.8 mg/dL High 0.1-0.75 Alkaline Phosphatase 73 U/L 39-117 Alt (SGPT) 23 U/L 17-63 Ast (Sgot) 28 U/L 12-42 Laboratory test finding 11/10/2009 Vitamin B12 377 pg/mL 180-914 TSH 2.65 MIU/ML 0.34-5.60 Rheumatoid Factor < 20.0 IU/mL Less Than 20 C Reactive Protein < 0.5 mg/dL Less Than 0.5 Adia (Antinuclear Antibodies) NEGATIVE Negative Protein Electrophoresis Serum 11/10/2009 Albumin 3.25 GM/DL 3.0-4.35 Alpha 1 0.18 GM/DL 0.09-0.33 Alpha 2 0.96 GM/DL 0.59-1.18 Beta 0.85 GM/DL 0.68-1.02 Gamma 0.76 GM/DL 0.76-1.60 Albumin % 54.2 % 46-63 Alpha 1 % 3.0 % 1.2-5.3 Alpha 2 % 16.0 % 9-17 Beta % 14.2 % 10-16 Gamma % 12.7 % 12-22 A/G Ratio 1.2 0.9-2 Total Protein 6.0 GM/DL Low 6.2-8.1 Spep Comments (SEE NOTE) 39 Laboratory test 11/10/2009 Syphilis IgG NON-REACTIVE Nonreactive 40 finding Surgical Pathology 11/10/2009 Surgical Pathology 41 <SEE NOTE> Laboratory test 04/30/2009 TSH 2.77 MIU/ML 0.34-5.60 finding PSA,Diagnostic 0.0 NG/ML 0-4 42 Lipid Profile (Trig/Chol/HDL) 04/30/2009 Triglyceride 261 mg/dL High 40- 200 Cholesterol 181 mg/dL Less Than 200 43 High Density Lipoprotein 42 mg/dL 40-60 44 Cholesterol/HDL Ratio 4.31 AVERAGE 1-4.97 Low Density Lipoprotein 87 mg/dL Less Than 100 45 Comp Metabolic Panel 04/30/2009 Sodium 140 mmol/L 135-145 Potassium 4.5 mmol/L 3.5-5.0 Chloride 106 mmol/L 101-111 Co2 (Carbon Dioxide) 28.0 mmol/L 22-32 Anion Gap 6.0 mmol/L 2-11 46 Glucose 73 mg/dL 70-100 47 BUN 18 mg/dL 6-24 Creatinine 1.10 mg/dL 0.50-1.40 One Over Creatinine 0.90 BUN/Creatinine Ratio 16.4 8-20 Calcium 9.5 mg/dL 8.1-9.9 48 Total Protein 6.3 GM/DL 6.2-8.1 Albumin 3.9 GM/DL 3.2-5.2 Globulin 2.4 GM/DL 2-4 Albumin/Globulin Ratio 1.6 1-3 Bilirubin Total 0.7 mg/dL 0.4-1.5 49 Alkaline Phosphatase 78 U/L 39-117 Alt (SGPT) 24 U/L 17-63 Ast (Sgot) 27 U/L 12-42 eGFR Non- 69.5 > 60 eGFR 84.2 > 60 50 CBC With Electronic Diff 04/30/2009 White Blood Count 8.0 CUMM 4.8-10.8 Red Cell Count 4.46 CUMM Low 4.6-6.2 Hemoglobin 13.6 g/dL Low 14.0-18.0 Hematocrit 41 % Low 42-52 Mean Corpuscular Volume 92 um3 80-94 Mean Corpuscular Hemoglob 30 pg 27-31 Mean Corpuscular HGB Cone 33 g/dL 32-36 Redcell Distribution WDTH 14 % 10.5-15 Platelet Count 311 CUMM 150-450 Mean Platelet Volume 7.1 um3 Low 7.4-10.4 Gran % 59.0 % 38-83 Lymph % 29.1 % 25-47 Mononuclear % 8.3 % 1-9 Eosinophil % 2.4 % 0-6 Basophil % 1.2 % 0-2 Abs Lymphs 2.3 1.0-4.8 Abs Mononuclear 0.7 0-0.8 Absolute Neutrophil Count 4.7 1.5-7.7 Abs Eosinophils 0.2 0-0.6 Abs Basophils 0.1 0-0.2 Laboratory test finding 03/18/2008 Vitamin B12 215 pg/mL 180-914 Folic Acid 9.4 NG/ML 2-16 TSH 2.74 MIU/ML 0.34-5.60 Carcino Embryonic Antigen 1.5 NG/ML 0-5 51 Lipid Profile (Trig/Chol/HDL) 03/18/2008 Triglyceride 297 mg/dL High 40- 200 Cholesterol 198 mg/dL Less Than 200 52 High Density Lipoprotein 45 mg/dL 40-60 53 Cholesterol/HDL Ratio 4.40 AVERAGE 1-4.97 Low Density Lipoprotein 94 mg/dL Less Than 100 54 Comp Metabolic Panel 03/18/2008 Sodium 142 mmol/L 135-145 Potassium 4.9 mmol/L 3.5-5.0 Chloride 111 mmol/L 101-111 Co2 (Carbon Dioxide) 28.0 mmol/L 22-32 Anion Gap 3.0 mmol/L 2-11 55 Glucose 83 mg/dL 70-105 BUN 18 mg/dL 6-24 Creatinine 1.3 mg/dL 0.5-1.4 One Over Creatinine 0.76 BUN/Creatinine Ratio 13.8 8-20 Calcium 9.0 mg/dL 8.1-9.9 56 Total Protein 6.8 GM/DL 6.2-8.1 Albumin 3.9 GM/DL 3.2-5.2 Globulin 2.9 GM/DL 2-4 Albumin/Globulin Ratio 1.3 1-3 Bilirubin Total 0.6 mg/dL 0.4-1.5 Alkaline Phosphatase 84 U/L 39-117 Alt (SGPT) 23 U/L 17-63 Ast (Sgot) 28 U/L 12-42 CBC With Electronic Diff 03/18/2008 White Blood Count 7.7 CUMM 4.8-10.8 Red Cell Count 4.57 CUMM Low 4.6-6.2 Hemoglobin 13.9 g/dL Low 14.0-18.0 Hematocrit 41 % Low 42-52 Mean Corpuscular Volume 90 um3 80-94 Mean Corpuscular Hemoglob 31 pg 27-31 Mean Corpuscular HGB Cone 34 g/dL 32-36 Redcell Distribution WDTH 14 % 10.5-15 Platelet Count 417 CUMM 150-450 Mean Platelet Volume 7.1 um3 Low 7.4-10.4 Gran % 64.5 % 38-83 Lymph % 23.6 % 20-45 Mononuclear % 9.0 % 1-9 Eosinophil % 2.4 % 0-6 Basophil % 0.5 % 0-2 Abs Lymphs 1.8 1.0-4.8 Abs Mononuclear 0.7 0-0.8 Absolute Neutrophil Count 4.9 1.5-7.7 Abs Eosinophils 0.2 0-0.6 Abs Basophils 0 0-0.2 Laboratory test finding 12/25/2007 PSA Screening 0.0 NG/ML 0-4 57 Liver Function Panel 03/22/2007 Albumin/Globulin Ratio 1.5 1-3 Albumin 3.8 GM/DL 3.2-5.2 Alkaline Phosphatase 83 U/L 39-117 Alt (SGPT) 21 U/L 17-63 Ast (Sgot) 26 U/L 12-42 Bilirubin Direct 0.1 mg/dL 0.1-0.5 Globulin 2.6 GM/DL 2-4 Indirect Bilirubin 0.5 mg/dL 0.1-0.75 Bilirubin Total 0.6 mg/dL 0.4-1.5 Total Protein 6.4 GM/DL 6.2-8.1 1 Because ethnic data is not always readily available, this report includes an eGFR for both -Americans and non- Americans. The National Kidney Disease Education Program (NKDEP) does not endorse the use of the MDRD equation for patients that are not between the ages of 18 and 70, are , have extremes of body size, muscle mass, or nutritional status, or are non- or non-. According to the National Kidney Foundation, irrespective of diagnosis, the stage of the disease is based on the level of kidney function: Stage Description GFR(mL/min/1.73 m(2)) 1 Kidney damage with normal or decreased GFR 90 2 Kidney damage with mild decrease in GFR 60-89 3 Moderate decrease in GFR 30-59 4 Severe decrease in GFR 15-29 5 Kidney failure <15 (or dialysis) 2 SEE RESULT BELOW Name: GARFIELDHERONCRYSTALE Heber KUO : [address]: Cy Rodriguez III, MD Acct: [id number] Unit: [id number] AGE: 82 Location: [facility] Re04/24/18 SEX: M Status: REG REF SPEC: [id number] ALICIA: 04/24/18 [facility] DR: Cy Rodriguez III, MD REQ: [id number] RECD: 04/24/18 STATUS: PRAKASH PARRA DR: Kelly Damian MD _ SOURCE: URINE SPDESC: ORDERED: Urine Culture Procedure Result Reported Site Urine Culture Final 04/25/18- 1331 ML No Growth (<1,000 CFU/mL) * ML - Main Lab . END OF REPORT DEPARTMENT OF PATHOLOGY, [address] [place] [address] Eduard Aguero M.D. Director [facility] # [id number] 3 Because ethnic data is not always readily available, this report includes an eGFR for both -Americans and non- Americans. The National Kidney Disease Education Program (NKDEP) does not endorse the use of the MDRD equation for patients that are not between the ages of 18 and 70, are , have extremes of body size, muscle mass, or nutritional status, or are non- or non-. According to the National Kidney Foundation, irrespective of diagnosis, the stage of the disease is based on the level of kidney function: Stage Description GFR(mL/min/1.73 m(2)) 1 Kidney damage with normal or decreased GFR 90 2 Kidney damage with mild decrease in GFR 60-89 3 Moderate decrease in GFR 30-59 4 Severe decrease in GFR 15-29 5 Kidney failure <15 (or dialysis) 4 Dry Plasterer: [id number] Desirable: <150 Borderline High: 150-199 High: 200-499 Very High: >500 6 Desirable: <200 Borderline High: 200-239 High: >239 7 Low: <40 Desirable: 40-60 High: >60 8 Desirable: <100 Near Optimal: 100-129 Borderline High: 130-159 High: 160-189 Very High: >189 9 Normal Range 180 to 914 Indeterminate Range 145 to 180 Deficient Range <145 10 Because ethnic data is not always readily available, this report includes an eGFR for both -Americans and non- Americans. The National Kidney Disease Education Program (NKDEP) does not endorse the use of the MDRD equation for patients that are not between the ages of 18 and 70, are , have extremes of body size, muscle mass, or nutritional status, or are non- or non-. According to the National Kidney Foundation, irrespective of diagnosis, the stage of the disease is based on the level of kidney function: Stage Description GFR(mL/min/1.73 m(2)) 1 Kidney damage with normal or decreased GFR 90 2 Kidney damage with mild decrease in GFR 60-89 3 Moderate decrease in GFR 30-59 4 Severe decrease in GFR 15-29 5 Kidney failure <15 (or dialysis) 11 Because ethnic data is not always readily available, this report includes an eGFR for both -Americans and non- Americans. The National Kidney Disease Education Program (NKDEP) does not endorse the use of the MDRD equation for patients that are not between the ages of 18 and 70, are , have extremes of body size, muscle mass, or nutritional status, or are non- or non-. According to the National Kidney Foundation, irrespective of diagnosis, the stage of the disease is based on the level of kidney function: Stage Description GFR(mL/min/1.73 m(2)) 1 Kidney damage with normal or decreased GFR 90 2 Kidney damage with mild decrease in GFR 60-89 3 Moderate decrease in GFR 30-59 4 Severe decrease in GFR 15-29 5 Kidney failure <15 (or dialysis) 12 Desirable <150 Borderline high 150-199 High 200-499 Very High >500 13 Desirable <200 Borderline high 200-239 High >239 14 Low <40 Desirable: 40-60 High: >60 15 Desirable: <100 mg/dL Near Optimal: 100-129 mg/dL Borderline High: 130-159 mg/dL High: 160-189 mg/dL Very High: >189 mg/dL 16 Because ethnic data is not always readily available, this report includes an eGFR for both -Americans and non- Americans. The National Kidney Disease Education Program (NKDEP) does not endorse the use of the MDRD equation for patients that are not between the ages of 18 and 70, are , have extremes of body size, muscle mass, or nutritional status, or are non- or non-. According to the National Kidney Foundation, irrespective of diagnosis, the stage of the disease is based on the level of kidney function: Stage Description GFR(mL/min/1.73 m(2)) 1 Kidney damage with normal or decreased GFR 90 2 Kidney damage with mild decrease in GFR 60-89 3 Moderate decrease in GFR 30-59 4 Severe decrease in GFR 15-29 5 Kidney failure <15 (or dialysis) 17 Desirable <150 Borderline high 150-199 High 200-499 Very High >500 18 Desirable <200 Borderline high 200-239 High >239 19 Low <40 Desirable: 40-60 High: >60 20 Desirable <100 Near Optimal 100-129 Borderline high 130-159 High 160-189 Very High >189 21 Because ethnic data is not always readily available, this report includes an eGFR for both -Americans and non- Americans. The National Kidney Disease Education Program (NKDEP) does not endorse the use of the MDRD equation for patients that are not between the ages of 18 and 70, are , have extremes of body size, muscle mass, or nutritional status, or are non- or non-. According to the National Kidney Foundation, irrespective of diagnosis, the stage of the disease is based on the level of kidney function: Stage Description GFR(mL/min/1.73 m(2)) 1 Kidney damage with normal or decreased GFR 90 2 Kidney damage with mild decrease in GFR 60-89 3 Moderate decrease in GFR 30-59 4 Severe decrease in GFR 15-29 5 Kidney failure <15 (or dialysis) 22 HDL Interpretation: Undesirable: High Risk: Less than 40 mg/dL Desirable: Low Risk: Greater than 60 mg/dL 23 LDL Interpretation: Low Risk Optimal Level: LDL Less than 100 mg/dL Near or Above Optimal: LDL 100-129 mg/dL Borderline High Risk: LDL 130-159 mg/dL High Risk: LDL 160-189 mg/dL Very High Risk: LDL Greater than 189 mg/dL 24 CHOLESTEROL INTERPRETATION: Desirable: Less than 200 MG/DL Borderline-High Risk: 200-239 MG/DL High-Risk: 240 MG/DL and over 25 HDL INTERPRETATION: Undesirable: High Risk: Less than 40 MG/DL Desirable: Low Risk: Greater than 60 MG/DL 26 LDL INTERPRETATION: Low Risk Optimal Level: LDL Less than 100 MG/DL Near or Above Optimal: LDL 100-129 MG/DL Borderline High Risk: LDL 130-159 MG/DL High Risk: LDL 160-189 MG/DL Very High Risk: LDL Greater than 189 MG/DL 27 Anion gap measurement may be of limited value in the presence of any alkalosis, especially in a combined acid base disorder. . 28 A metabolite of Naproxen, O-desmethylnaproxen, has been shown to interfere with the Jendrassik-Brookfield method for measuring total bilirubin. Samples from patients who have taken Naproxen have shown spurious elevation in total bilirubin levels. 29 Because ethnic data is not always readily available, this report includes an eGFR for both -Americans and non- Americans. The National Kidney Disease Education Program (NKDEP) does not endorse the use of the MDRD equation for patients that are not between the ages of 18 and 70, are , have extremes of body size, muscle mass, or nutritional status, or are non- or non-. According to the National Kidney Foundation, irrespective of diagnosis, the stage of the disease is based on the level of kidney function: Stage Description GFR(mL/min/1.73 m(2)) 1 Kidney damage with normal or decreased GFR 90 2 Kidney damage with mild decrease in GFR 60-89 3 Moderate decrease in GFR 30-59 4 Severe decrease in GFR 15-29 5 Kidney failure <15 (or dialysis) 30 * SERUM LEVELS OF PSA MEASURED USING THE LALA GRAYL ACCESS HYBRITECH IMMUNOASSAY SHOULD NOT BE INTERPRETED ABSOLUTE EVIDENCE OF THE PRESENCE OR ABSENCE OF DISEASE. THE PSA VALUE SHOULD BE USED IN CONJUNCTION WITH OTHER PERTINENT CLINICAL DIAGNOSTIC PROCEDURES. A PSA value in the range of 0.1 to 0.6 ng/ml is indeterminate if being used as an indicator of recurrent or residual disease. . The values obtained with different assay methods of kits cannot be used interchangeably. 31 Recommended INR for Patients on Oral Anticoagulants Prophylaxis 2.0 - 3.0 Treatment of thrombosis 2.0 - 3.0 Prevention of embolism 2.0 - 3.0 Prevention of embolism from prosthetic heart valves 2.5 - 3.5 32 DIAGNOSIS,TREATMENT,AND THERAPY MUST BE BASED ON THE INR VALUE ALONE. 33 Anion gap measurement may be of limited value in the presence of any alkalosis, especially in a combined acid base disorder. . 34 A metabolite of Naproxen, O-desmethylnaproxen, has been shown to interfere with the Jendrassik-Maria Guadalupe method for measuring total bilirubin. Samples from patients who have taken Naproxen have shown spurious elevation in total bilirubin levels. 35 Because ethnic data is not always readily available, this report includes an eGFR for both -Americans and non- Americans. The National Kidney Disease Education Program (NKDEP) does not endorse the use of the MDRD equation for patients that are not between the ages of 18 and 70, are , have extremes of body size, muscle mass, or nutritional status, or are non- or non-. According to the National Kidney Foundation, irrespective of diagnosis, the stage of the disease is based on the level of kidney function: Stage Description GFR(mL/min/1.73 m(2)) 1 Kidney damage with normal or decreased GFR 90 2 Kidney damage with mild decrease in GFR 60-89 3 Moderate decrease in GFR 30-59 4 Severe decrease in GFR 15-29 5 Kidney failure <15 (or dialysis) 36 New Reference Range and Interpretation effective 06/08/2002 TnI (ng/ml) INTERPRETATION Less Than 0.06 ng/mL NOT SUPPORTIVE OF DIAGNOSIS OF [place] 0.06 - 0.50 ng/ml INDETERMINATE: SUGGEST SERIAL STUDIES IF CLINICALLY INDICATED. Greater than 0.5 ng/mL CONSISTENT WITH DIAGNOSIS OF [place] . 37 * SERUM LEVELS OF PSA MEASURED USING THE [employer] ACCESS HYBRITECH IMMUNOASSAY SHOULD NOT BE INTERPRETED ABSOLUTE EVIDENCE OF THE PRESENCE OR ABSENCE OF DISEASE. THE PSA VALUE SHOULD BE USED IN CONJUNCTION WITH OTHER PERTINENT CLINICAL DIAGNOSTIC PROCEDURES. A PSA value in the range of 0.1 to 0.6 ng/ml is indeterminate if being used as an indicator of recurrent or residual disease. . 38 A metabolite of Naproxen, O-desmethylnaproxen, has been shown to interfere with the Jendrtinaik-Brookfield method for measuring total bilirubin. Samples from patients who have taken Naproxen have shown spurious elevation in total bilirubin levels. 39 NORMAL ELECTROPHORETIC PATTERN. 40 Warning: A positive result is not useful for establishing a diagnosis of syphilis. In most situations, such a result may reflect a prior treated infection; a negative result can exclude a diagnosis of syphilis except for incubating or early primary disease. 41 ---- RUN DATE: 11/12/09 [facility] NMI LIVE PAGE 1 RUN TIME: 1425 Specimen Inquiry RUN USER: INTERFACE -- Name: LUÍS MCLAUGHLIN Heber KUO Status: REG REF Re11/10/09 Age/Sex: 74/M Unit#: [id number] Location: [facility] : 34 -- Specimen: [id number] SOUT Spec Date: 11/10/[address]: Rudy nguyen MD Spec Type: SURGICAL P Received: 11/11/095829 Copies to: Cy Rodriguez III, MD SPECIMEN BIOPSY RECTO-SIGMOID COLON AT 16 CM HISTORY POST-OP DIAGNOSIS: Mild sigmoid diverticulosis, right cele enodule, accounting intern al hemorrhoids CLINICAL INFORMATION: History colon tumor GROSS DESCRIPTION Specimen received in formalin labelled Luís Mclaughlin, Biopsy Rectosigmoid Colon at 16 cm. and consists of three fragments of souza-brown tissue measuring 0.4 x 0.4 x 0.4 cm. DIAGNOSIS Rectosigmoid, at 16 cm., biopsy: Hyperplastic polyp. Signed Electronically by: TUNDE BROWN 11/12/09 1425 -- -- DEPARTMENT OF PATHOLOGY, [address] [place] [address] [facility] Permit #[id number] Eduard Aguero M.D. Director Tunde Brown M.D. Cans Vacuum Tester Dir brandy -- 42 * SERUM LEVELS OF PSA MEASURED USING THE LALA GRAYL ACCESS HYBRITECH IMMUNOASSAY SHOULD NOT BE INTERPRETED ABSOLUTE EVIDENCE OF THE PRESENCE OR ABSENCE OF DISEASE. THE PSA VALUE SHOULD BE USED IN CONJUNCTION WITH OTHER PERTINENT CLINICAL DIAGNOSTIC PROCEDURES. A PSA value in the range of 0.1 to 0.6 ng/ml is indeterminate if being used as an indicator of recurrent or residual disease. . 43 CHOLESTEROL INTERPRETATION: Desirable: Less than 200 MG/DL Borderline-High Risk: 200-239 MG/DL High-Risk: 240 MG/DL and over 44 HDL INTERPRETATION: Undesirable: High Risk: Less than 40 MG/DL Desirable: Low Risk: Greater than 60 MG/DL 45 LDL INTERPRETATION: Low Risk Optimal Level: LDL Less than 100 MG/DL Near or Above Optimal: LDL 100-129 MG/DL Borderline High Risk: LDL 130-159 MG/DL High Risk: LDL 160-189 MG/DL Very High Risk: LDL Greater than 189 MG/DL 46 Anion gap measurement may be of limited value in the presence of any alkalosis, especially in a combined acid base disorder. . 47 Note change in reference range as of 04/25/08. The change was based on recommendations from the [place] [employer]. 48 Please note change in reference range effective 08 . 49 A metabolite of Naproxen, O-desmethylnaproxen, has been shown to interfere with the Jendrassik-Brookfield method for measuring total bilirubin. Samples from patients who have taken Naproxen have shown spurious elevation in total bilirubin levels. 50 Because ethnic data is not always readily available, this report includes an eGFR for both -Americans and non- Americans. The National Kidney Disease Education Program (NKDEP) does not endorse the use of the MDRD equation for patients that are not between the ages of 18 and 70, are , have extremes of body size, muscle mass, or nutritional status, or are non- or non-. According to the National Kidney Foundation, irrespective of diagnosis, the stage of the disease is based on the level of kidney function: Stage Description GFR(mL/min/1.73 m(2)) 1 Kidney damage with normal or decreased GFR 90 2 Kidney damage with mild decrease in GFR 60-89 3 Moderate decrease in GFR 30-59 4 Severe decrease in GFR 15-29 5 Kidney failure <15 (or dialysis) 51 SMOKING MAY INCREASE VALUES SERUM LEVELS OF CEA MEASURED USING THE LALA SUZANNE ACCESS IMMUNOASSAY SYSTEM SHOULD NOT BE INTERPRETED ABSOLUTE EVIDENCE OF THE PRESENCE OR ABSENCE OF DISEASE. THE CEA VALUE SHOULD BE USED IN CONJUNCTION WITH OTHER PERTINENT CLINICAL DIAGNOSTIC PROCEDURES. 52 CHOLESTEROL INTERPRETATION: Desirable: Less than 200 MG/DL Borderline-High Risk: 200-239 MG/DL High-Risk: 240 MG/DL and over 53 HDL INTERPRETATION: Undesirable: High Risk: Less than 40 MG/DL Desirable: Low Risk: Greater than 60 MG/DL 54 LDL INTERPRETATION: Low Risk Optimal Level: LDL Less than 100 MG/DL Near or Above Optimal: LDL 100-129 MG/DL Borderline High Risk: LDL 130-159 MG/DL High Risk: LDL 160-189 MG/DL Very High Risk: LDL Greater than 189 MG/DL 55 Anion gap measurement may be of limited value in the presence of any alkalosis, especially in a combined acid base disorder. . 56 Please note change in reference range effective 08 . 57 * SERUM LEVELS OF PSA MEASURED USING THE LALA SUZANNE ACCESS HYBRITECH IMMUNOASSAY SHOULD NOT BE INTERPRETED ABSOLUTE EVIDENCE OF THE PRESENCE OR ABSENCE OF DISEASE. THE PSA VALUE SHOULD BE USED IN CONJUNCTION WITH OTHER PERTINENT CLINICAL DIAGNOSTIC PROCEDURES. A PSA value in the range of 0.1 to 0.6 ng/ml is indeterminate if being used as an indicator of recurrent or residual disease. . Procedures Date CPT Code Description Status 04/20/2018 38986 EKG Tracing & Interpretation Completed 04/03/2018 34262 Inject/Drain Joint/Bursa Major W/O US Completed 12/24/2015 82181 Plethysmography Determination Lung Volumes & Per Airway Completed Resist 12/24/2015 61547 Pulmonary Function><Bronchodil Completed 03/31/2010 76048 EKG Tracing & Interpretation Completed 11/10/2009 Colonoscopy Completed 10/07/2009 47030 EKG Tracing & Interpretation Completed 12/02/2004 Colonoscopy Completed 07/20/2000 Colonoscopy Completed Encounters Type Date Location Provider CPT E/M Dx Office Visit 04/03/2018 [facility] Kelly Damian M.D. 55499 M25.562 10:30a Of [facility] M25.462 M17.12 Office Visit 08/23/2017 9:20a [facility] Internal Medicine Cy Rodriguez, 51436 R20.8 - Mark Henley Office Visit 07/20/2017 3:20p [facility] Internal Medicine Cy Rodriguez, 72066 Z01.818 - Mark Henley H26.9 I10 K21.9 Z85.46 Z85.038 R20.8 E78.2 I73.9 Z23 Office Visit 06/16/2016 10:00a [facility] Internal [facility] Cy Rodriguez, 62724 I10 Mark Henley G25.0 Z23 Office Visit 01/05/2016 10:20a [facility] Internal Medicine Cy Rodriguez, 05201 R10.32 - Cora Henley R06.2 Office Visit 12/16/2015 10:00a [facility] Internal [facility] Cy Rodriguez, 47233 Z00.00 - Cora Henley I10 K21.9 Z85.46 Z85.038 G25.0 R06.2 Office Visit 05/26/2015 11:00a [facility] Internal [facility] Cy Rodriguez, 14902 I10 Cora Henley R20.8 Z23 R20.2 V04.81 Office Visit 08/09/2013 9:30a [facility] Internal Medicine Armaan Chaparro, 54433 380.4 - Cora Henley,[facility] Office Visit 08/15/2012 9:00a [facility] Internal Medicine Cy Rodriguez, 11600 333.1 - Cora Henley 796.2 Office Visit 05/15/2012 9:00a [facility] Internal [facility] Cy Rodriguez, 63474 401.1 - Cora Henley 333.1 V04.81 Office Visit 03/13/2012 9:20a [facility] Internal Medicine Cy Rodriguez, 55082 401.1 - Cora Henley 333.1 Office Visit 05/28/2011 10:00a DO Not Use Claims Manager AT Nurse Visit [facility] 79916 380.4 [facility] Office Visit 11/11/2010 11:40a DO Not Use Claims Manager AT Cy Rodriguez, 84445 053.9 Camila Henley Office Visit 11/06/2010 9:40a DO Not Use Claims Manager AT [facility], 85692 789.07 [facility] 796.2 Office Visit 10/29/2010 9:00a DO Not Use Claims Manager AT [facility], 53386 V70.0 [facility] 530.81 333.1 782.0 796.2 V10.46 Office Visit 03/31/2010 10:20a DO Not Use Claims Manager AT [facility], 10811 V72.81 [facility] 530.81 333.1 782.0 796.2 Office Visit 11/26/2009 2:20p DO Not Use Claims Manager AT [facility], 11892 333.1 [facility] 782.0 Office Visit 10/07/2009 9:00a DO Not Use Claims Manager AT [facility], 86331 530.81 [facility] 782.0 V10.46 724.02 272.0 Office Visit 04/29/2009 10:30a [facility], 24098 530.81 [facility] 782[facility]0 V10.46 Office Visit 10/30/2008 10:30a [facility], 48657 472.0 [facility] 03/18/2008 9:00a [facility], 39343 796.2 [facility] V06[facility]5 Office Visit 09/13/2007 10:15a [facility], 99178 530.81 [facility].D. Plan of Care Future Appointment(s):05/26/2018 10:00 am - Kelly Damian M.D. at [facility]05/11/2018 2:30 pm - Leeroy Garvin PA-C at [facility]05/11/2018 2:30 pm - PAULA Wells at [facility]10/23/2018 1:00 pm - Cy Rodriguez M.D. at [facility] - Gkdzvxdxw61/06/2018 2:30 pm - [facility] - Kelly Damian M.D.M25.562 Pain in left kneeFollow up:Follow up: 2 weeks after xtyyzvrH73.462 Effusion, left kneeM17.12 Unilateral primary osteoarthritis, left knee
--- OUTSIDE RECORDS SUMMARY | 2018-05-11 10:06 | XMS REPORT ---
:1935 External Reference #:[id number] Author Organization [employer] Address [address] [facility] [place] [address] Phone [phone] Care Team Providers Name Role Phone Cy Rodriguez III, MD Primary Care Physician Unavailable Payers Type Date Identification Numbers Payment Provider Subscriber Medicare Primary Policy Number: [id number] Medicare Luís A Clapper PayID: [id number] [address] [facility] [place] [address] Medigap Part B Expires: 2018 Policy Number: [id number] Medicare Luís A Clapper PayID: [id number] [address] [place] [address] Medigap Part B Policy Number: [id number] [facility] Luís A Clapper PayID: [id number] [address] [place] [address] Commercial PayID: [id number] Medicare D - Drug Luís A Clapper Plan Medigap Part B Effective: Policy Number: [facility] Luís A Clapper 2012 [id number] (Oon) Expires: 2014 PayID: [id number] [address] [place] [address] Medigap Part B Expires: 2012 Policy Number: [facility] Luís A Clapper [id number] Group Number: [id number] [address] [address] PayID: [id number] NANI Thakkar [id number] Problems Date Description Provider Status Onset: 04/30/2009 [...] Type/Frequency Exercises regularly active around the house daily Allergies, Adverse Reactions, Alerts Date Description Reaction Status Severity Comments 11/06/2010 NKDA active 09/12/2007 NKDA inactive Medications Medication Date Status Form Strength Qnty SIG Indications Ordering Provider Diltiazem HCL ER 12/25 Active Caps ER 120mg 90cap 1 by mouth Cy Orellana 24HR s every day Lory Rodriguez Omeprazole 03/[address] 40mg 90cap take one s capsule by Jennifer, mouth once M.D. daily Prevalite 04/27 Active Packet 4gm 90uni mix 1 ts packet in Jennifer, fluid and M.D. drink daily Zolpidem 10/07 Active Tablets 10mg 30tab 1/2 to 1 Cy Orellana Tartrate /2009 s tab every Jennifer, night at M.D. bedtime as needed Cholestyramine Active Unknown /0000 Gabapentin 08/23 Hx Capsules 300mg 180ca 2 by mouth R20.8 Cy Orellana ps three times Jennifer, - a day M.D. 04/19 Mysoline 06/16 Hx Tablets 50mg 180ta 2 by mouth G25.0 Cy Orellana bs daily at Jennifer, - bedtime M.D. 07/20 Propranolol HCL 12/15 Hx Tablets 60mg 30tab 1 by mouth Cy EMana s every Jennifer, - morning M.D. 06/16 Atenolol 10/13 Hx Tablets 25mg 90tab 1 by mouth G25.0 Cy Orellana s every day Gera Rodriguez M.DMana 12/15 Inderal LA 11/12 Hx Caps ER 60mg 90cap 1 by mouth G25.0 Cy Orellana 24HR s once daily Gera Rodriguez M.DMana 10/13 Diltiazem HCL 11/12 Hx Tablets 120mg 90tab 1 by mouth Cy EMana s every day Gera Rodriguez M.DMana 12/25 Cardizem CD 04/25 Hx Caps ER 240mg 90cap 1 po qd 401.1 Cy Orellana 24HR s Gera Rodriguez.Milly 11/12 Zolpidem 08/15 Hx Tablets 10mg 30tab 09/06 to Cy Smith s every night Jennifer, - at bedtime M.D. 01/04 as needed Cardizem CD 08/15 Hx Caps ER 120mg 90cap 1 po qd 401.1 Cy Orellana 24HR s Gera Rodriguez M.D. 04/25 Metoprolol 03/13 Hx Tablets 25mg 180ta 1 po qd 401.1 Cy Orellana Tartrate /2011 bs Gera Rodriguez.Milly 08/15 Valtrex 11/11 Hx Tablets 1gm 21tab 1 po q8h 053.9 Cy Orellana /2010 s Gera Rodriguez M.D. 02/07 Tylenol/Codeine 11/11 Hx Tablets 300-30mg 40tab 1-2 po qid 053.9 Cy E. # Gera Hughes M.D. 02/07 Cholestyramine 10/29 Hx Packet 4gm 90Pac 1 packet qd Gera Roman M.D. 04/27 Omeprazole 07/[address] 20mg 90cap 1 po qd Cy E. Gera Schofield M.D. 03/30 Lamisil 10/30 Hx Tablets 250mg 42tab 1 po for 6 s weeks Gera Rodriguez M.D. 04/29 Flonase 10/30 Hx Suspension 50mcg/Act 1Bott 1 le Gera Sparks M.D. 03/31 nostril daily Cholestyramine Hx Packet 4gm 90Pac 1 packet qd Cy E. / Gera Roman M.D. 10/29 Cyanocobalamin Hx Solution 1000mcg/M 20ml 1 ml im q Cy E. /0000 L Gera Doss M.D. 03/[address] 20mg 90cap 1 po qd Cy E. / Gera Schofield M.D. 03/31 Vitamin B-12 00 Hx Tablets 1000mcg 1 by mouth Unknown /0000 every day - 04/19 Medications Administered in Office Medication Date Status Form Strength Qnty SIG Indications Ordering Provider Depomedrol Administered Injection Kelly 40MG Jeremie Damian M.D. Immunizations CPT Code Status Date Vaccine Lot # [id number] Given 07/20/2017 Tdap - Tetanus/Diptheria/Acellular Pertussis [id number] Given 05/31/2017 Influenza Virus Vaccine, Quadrivalent, Split, Preservative Free 37522 Given 06/16/2016 Influenza Virus Vaccine, Quadrivalent, Split [id number] Virus, Im Use 75560 Given 11/12/2014 Pneumococcal Conjugate Vaccine 13 Valent For [id number] Intramuscular Use 67821 Given 05/25/2014 Fluzone High Dose 51549 Given 07/16/2013 Flu Vaccine Split Virus Preservative Free For Indiv 3Yr Older [id number] Given 05/15/2012 Fluzone Vaccine [id number] 33676 Given 05/27/2011 Influenza Virus 3Yrs & Over 75290 Given 03/18/2008 Tetanus And Diptheria (Td) For Adult Use Preservative Free 09876 Given 03/18/2008 Tetanus And Diptheria (Td) For Adult Use [id number] Preservative Free 04033 Given 09/05/2002 Pneumonia Vaccine [id number] Vital Signs Date Vital Result Comment 04/20/2018 Height 70.25 inches 5'10.25" Weight 210.00 [...] Test Date Test Result H/L Range Note Rapid Influenza A & B 11/05/2017 Influenza A Molecular NEGATIVE Negative 1 Molecular Influenza B Molecular NEGATIVE Negative Comp Metabolic Panel 07/21/2017 Sodium 141 mmol/L [...] Egfr Non- 62.8 >60 Egfr 80.7 >60 2 CBC Auto Diff 07/21/2017 White Blood Count [...] 0-2 Nucleated Red Blood Cells % 0.1 Laboratory test finding 07/21/2017 Magnesium 2.0 mg/dL 1.9-2.7 Vitamin B12 And Folate Serum 07/21/2017 Vitamin B12 302 pg/mL 180-914 3 Folic Acid (Folate) 7.49 ng/mL >3.99 Laboratory test finding 07/21/2017 TSH (Thyroid Stim Horm) 4.69 mcIU/mL 0.34-5.60 Lipid Profile 07/21/2017 Triglycerides 208 mg/dL 4 (Trig/Chol/HDL) Cholesterol 167 mg/dL 5 HDL Cholesterol 49.5 mg/dL 6 LDL Cholesterol 76 mg/dL 7 Comp Metabolic Panel 06/08/2016 Sodium 138 mmol/L [...] Egfr Non- 62.9 >60 Egfr 80.9 >60 8 Lipid Profile (Trig/Chol/HDL) 06/08/2016 Triglycerides 233 mg/dL 9 Cholesterol 169 mg/dL 10 HDL Cholesterol 47.3 mg/dL 11 LDL Cholesterol 75 mg/dL 12 Comp Metabolic Panel 11/05/2014 Sodium 137 mmol/L [...] Egfr Non- 60.0 >60 Egfr 77.1 >60 13 Lipid Profile (Trig/Chol/HDL) 11/05/2014 Triglycerides 305 mg/dL 14 Cholesterol 151 mg/dL 15 HDL Cholesterol 34.4 mg/dL 16 LDL Cholesterol 56 mg/dL 17 Comp Metabolic Panel 04/17/2013 Sodium 139 mmol/L [...] Egfr Non- 64.7 >60 Egfr 83.3 >60 18 Lipid Profile (Trig/Chol/HDL) 04/17/2013 Triglycerides 232 mg/dL High 40- 200 Cholesterol 170 mg/dL Less than 200 HDL Cholesterol 44 mg/dL 40-60 19 Cholesterol/HDL Ratio 3.9 Average 1-4.44 LDL Cholesterol 79.6 Less Than 100 20 Lipid Profile (Trig/Chol/HDL) 02/04/2012 Triglyceride 193 mg/dL 40-200 Cholesterol 165 mg/dL Less Than 200 21 High Density Lipoprotein 46 mg/dL 40-60 22 Cholesterol/HDL Ratio 3.59 AVERAGE 1-4.97 Low Density Lipoprotein 80 mg/dL Less Than 100 23 Comp Metabolic Panel 02/04/2012 Sodium 137 mmol/L 135-145 Potassium 4.3 mmol/L 3.5-5.0 Chloride 105 mmol/L 101-111 Co2 (Carbon Dioxide) 23.0 mmol/L 22-32 Anion Gap 9.0 mmol/L 2-11 24 Glucose 92 mg/dL 70-100 BUN 14 mg/dL 6-24 Creatinine 1.1 mg/dL 0.50-1.40 One Over Creatinine 0.90 BUN/Creatinine Ratio 12.7 8-20 Calcium 9.2 mg/dL 8.1-9.9 Total Protein 6.0 GM/DL Low 6.2-8.1 Albumin 3.9 GM/DL 3.2-5.2 Globulin 2.1 GM/DL 2-4 Albumin/Globulin Ratio 1.9 1-3 Bilirubin Total 0.7 mg/dL 0.4-1.5 25 Alkaline Phosphatase 90 U/L 39-117 Alt (SGPT) 19 U/L 17-63 Ast (Sgot) 25 U/L 12-42 eGFR Non- 64.9 > 60 eGFR 83.5 > 60 26 Laboratory test finding 12/15/2011 PSA,Diagnostic 0.0 NG/ML 0-4 27 CBC With Electronic Diff 11/05/2010 White Blood [...] 0.1 0-0.2 Protime 11/05/2010 Inr 0.90 0.82-1.17 28 Protime 10.6 SEC 10.2-14.8 29 Laboratory test finding 11/05/2010 PTT (Aptt) 30.0 25.15-38.53 Comp Metabolic Panel 11/05/2010 Sodium 138 mmol/L 135-145 Potassium 4.4 mmol/L 3.5-5.0 Chloride 107 mmol/L 101-111 Co2 (Carbon Dioxide) 24.0 mmol/L 22-32 Anion Gap 7.0 mmol/L 2-11 30 Glucose 97 mg/dL 70-100 BUN 13 mg/dL 6-24 Creatinine 1.10 mg/dL 0.50-1.40 One Over Creatinine 0.90 BUN/Creatinine Ratio 11.8 8-20 Calcium 9.3 mg/dL 8.1-9.9 Total Protein 6.7 GM/DL 6.2-8.1 Albumin 4.2 GM/DL 3.2-5.2 Globulin 2.5 GM/DL 2-4 Albumin/Globulin Ratio 1.7 1-3 Bilirubin Total 0.7 mg/dL 0.4-1.5 31 Alkaline Phosphatase 80 U/L 39-117 Alt (SGPT) 22 U/L 17-63 Ast (Sgot) 28 U/L 12-42 eGFR Non- 65.1 > 60 eGFR 83.7 > 60 32 Laboratory test finding 11/05/2010 Troponin-I 0.01 NG/ML 0-0.06 33 Urinalysis 11/05/2010 Ua Color YELLOW Yellow Appearance-Urine CLEAR Clear Specific [place]-Ur 1.011 1.010-1.030 Esterase-Urine NEGATIVE Negative Nitrite NEGATIVE Negative Oljmmmtrrmiy-Ih-CGR NEGATIVE Negative Protein-Urine NEGATIVE Negative PH-Urine 5.5 5-9 Blood-Urine NEGATIVE Negative Ketones-Urine NEGATIVE Negative Bilirubin-Ur NEGATIVE Negative Glucose-Urine NEGATIVE Negative Laboratory test finding 10/29/2010 PSA,Diagnostic 0.0 NG/ML 0-4 34 CBC With Manual Diff 11/10/2009 White Blood [...] 1.7 1-3 Bilirubin Total 0.9 mg/dL 0.4-1.5 35 Bilirubin Direct 0.1 mg/dL 0.1-0.5 Indirect Bilirubin [...] GM/DL Low 6.2-8.1 Spep Comments (SEE NOTE) 36 Surgical Pathology 11/10/2009 Surgical <SEE 37 Pathology NOTE> Laboratory test 11/10/2009 Syphilis IgG NON-REACTIVE Nonreactive 38 finding Laboratory test 04/30/2009 TSH 2.77 MIU/ML 0.34-5.60 finding PSA,Diagnostic 0.0 NG/ML 0-4 39 Lipid Profile (Trig/Chol/HDL) 04/30/2009 Triglyceride 261 mg/dL High 40- 200 Cholesterol 181 mg/dL Less Than 200 40 High Density Lipoprotein 42 mg/dL 40-60 41 Cholesterol/HDL Ratio 4.31 AVERAGE 1-4.97 Low Density Lipoprotein 87 mg/dL Less Than 100 42 Comp Metabolic Panel 04/30/2009 Sodium 140 mmol/L 135-145 Potassium 4.5 mmol/L 3.5-5.0 Chloride 106 mmol/L 101-111 Co2 (Carbon Dioxide) 28.0 mmol/L 22-32 Anion Gap 6.0 mmol/L 2-11 43 Glucose 73 mg/dL 70-100 44 BUN 18 mg/dL 6-24 Creatinine 1.10 mg/dL 0.50-1.40 One Over Creatinine 0.90 BUN/Creatinine Ratio 16.4 8-20 Calcium 9.5 mg/dL 8.1-9.9 45 Total Protein 6.3 GM/DL 6.2-8.1 Albumin 3.9 GM/DL 3.2-5.2 Globulin 2.4 GM/DL 2-4 Albumin/Globulin Ratio 1.6 1-3 Bilirubin Total 0.7 mg/dL 0.4-1.5 46 Alkaline Phosphatase 78 U/L 39-117 Alt (SGPT) 24 U/L 17-63 Ast (Sgot) 27 U/L 12-42 eGFR Non- 69.5 > 60 eGFR 84.2 > 60 47 CBC With Electronic Diff 04/30/2009 White Blood [...] 0.34-5.60 Carcino Embryonic Antigen 1.5 NG/ML 0-5 48 Lipid Profile (Trig/Chol/HDL) 03/18/2008 Triglyceride 297 mg/dL High 40- 200 Cholesterol 198 mg/dL Less Than 200 49 High Density Lipoprotein 45 mg/dL 40-60 50 Cholesterol/HDL Ratio 4.40 AVERAGE 1-4.97 Low Density Lipoprotein 94 mg/dL Less Than 100 51 Comp Metabolic Panel 03/18/2008 Sodium 142 mmol/L 135-145 Potassium 4.9 mmol/L 3.5-5.0 Chloride 111 mmol/L 101-111 Co2 (Carbon Dioxide) 28.0 mmol/L 22-32 Anion Gap 3.0 mmol/L 2-11 52 Glucose 83 mg/dL 70-105 BUN 18 mg/dL 6-24 Creatinine 1.3 mg/dL 0.5-1.4 One Over Creatinine 0.76 BUN/Creatinine Ratio 13.8 8-20 Calcium 9.0 mg/dL 8.1-9.9 53 Total Protein 6.8 GM/DL 6.2-8.1 Albumin 3.9 [...] finding 12/25/2007 PSA Screening 0.0 NG/ML 0-4 54 Liver Function Panel 03/22/2007 Albumin/Globulin Ratio 1.5 1-3 Albumin 3.8 GM/DL 3.2-5.2 Alkaline Phosphatase 83 U/L 39-117 Alt (SGPT) 21 U/L 17-63 Ast (Sgot) 26 U/L 12-42 Bilirubin Direct 0.1 mg/dL 0.1-0.5 Globulin 2.6 GM/DL 2-4 Indirect Bilirubin 0.5 mg/dL 0.1-0.75 Bilirubin Total 0.6 mg/dL 0.4-1.5 Total Protein 6.4 GM/DL 6.2-8.1 1 Audiovisual Equipment Operator: [id number] 2 Because ethnic data is not always readily [...] 15-29 5 Kidney failure <15 (or dialysis) 3 Normal Range 180 to 914 Indeterminate Range 145 to 180 Deficient Range <145 4 Desirable: <150 Borderline High: 150-199 High: 200-499 Very High: >500 5 Desirable: <200 Borderline High: 200-239 High: >239 6 Low: <40 Desirable: 40-60 High: >60 7 Desirable: <100 Near Optimal: 100-129 Borderline High: 130-159 High: 160-189 Very High: >189 8 Because ethnic data is not always readily [...] 15-29 5 Kidney failure <15 (or dialysis) 9 Desirable <150 Borderline high 150-199 High 200-499 Very High >500 10 Desirable <200 Borderline high 200-239 High >239 11 Low <40 Desirable: 40-60 High: >60 12 Desirable: <100 mg/dL Near Optimal: 100-129 mg/dL Borderline High: 130-159 mg/dL High: 160-189 mg/dL Very High: >189 mg/dL 13 Because ethnic data is not always readily [...] 15-29 5 Kidney failure <15 (or dialysis) 14 Desirable <150 Borderline high 150-199 High 200-499 Very High >500 15 Desirable <200 Borderline high 200-239 High >239 16 Low <40 Desirable: 40-60 High: >60 17 Desirable <100 Near Optimal 100-129 Borderline high 130-159 High 160-189 Very High >189 18 Because ethnic data is not always readily [...] 15-29 5 Kidney failure <15 (or dialysis) 19 HDL Interpretation: Undesirable: High Risk: Less than 40 mg/dL Desirable: Low Risk: Greater than 60 mg/dL 20 LDL Interpretation: Low Risk Optimal Level: LDL Less than 100 mg/dL Near or Above Optimal: LDL 100-129 mg/dL Borderline High Risk: LDL 130-159 mg/dL High Risk: LDL 160-189 mg/dL Very High Risk: LDL Greater than 189 mg/dL 21 CHOLESTEROL INTERPRETATION: Desirable: Less than 200 MG/DL Borderline-High Risk: 200-239 MG/DL High-Risk: 240 MG/DL and over 22 HDL INTERPRETATION: Undesirable: High Risk: Less than 40 MG/DL Desirable: Low Risk: Greater than 60 MG/DL 23 LDL INTERPRETATION: Low Risk Optimal Level: LDL Less than 100 MG/DL Near or Above Optimal: LDL 100-129 MG/DL Borderline High Risk: LDL 130-159 MG/DL High Risk: LDL 160-189 MG/DL Very High Risk: LDL Greater than 189 MG/DL 24 Anion gap measurement may be of limited value in the presence of any alkalosis, especially in a combined acid base disorder. . 25 A metabolite of Naproxen, O-desmethylnaproxen, has been shown to interfere with the Jendrassik-Maxatawny method for measuring total bilirubin. Samples from patients who have taken Naproxen have shown spurious elevation in total bilirubin levels. 26 Because ethnic data is not always readily [...] 15-29 5 Kidney failure <15 (or dialysis) 27 * SERUM LEVELS OF PSA MEASURED USING THE LALA Apttus ACCESS HYBRITECH IMMUNOASSAY SHOULD NOT BE INTERPRETED [...] methods of kits cannot be used interchangeably. 28 Recommended INR for Patients on Oral Anticoagulants Prophylaxis 2.0 - 3.0 Treatment of thrombosis 2.0 - 3.0 Prevention of embolism 2.0 - 3.0 Prevention of embolism from prosthetic heart valves 2.5 - 3.5 29 DIAGNOSIS,TREATMENT,AND THERAPY MUST BE BASED ON THE INR VALUE ALONE. 30 Anion gap measurement may be of limited value in the presence of any alkalosis, especially in a combined acid base disorder. . 31 A metabolite of Naproxen, O-desmethylnaproxen, has been shown to interfere with the Jendrassik-Maria Guadalupe method for measuring total bilirubin. Samples from patients who have taken Naproxen have shown spurious elevation in total bilirubin levels. 32 Because ethnic data is not always readily [...] 15-29 5 Kidney failure <15 (or dialysis) 33 New Reference Range and Interpretation effective 06/08/2002 TnI (ng/ml) INTERPRETATION Less Than 0.06 ng/mL NOT SUPPORTIVE OF DIAGNOSIS OF LA 0.06 - 0.50 ng/ml INDETERMINATE: SUGGEST SERIAL STUDIES IF CLINICALLY INDICATED. Greater than 0.5 ng/mL CONSISTENT WITH DIAGNOSIS OF LA . 34 * SERUM LEVELS OF PSA MEASURED USING [...] indicator of recurrent or residual disease. . 35 A metabolite of Naproxen, O-desmethylnaproxen, has been shown to interfere with the Jose Juan- method for measuring total bilirubin. Samples from patients who have taken Naproxen have shown spurious elevation in total bilirubin levels. 36 NORMAL ELECTROPHORETIC PATTERN. 37 ---- RUN DATE: 11/12/09 [facility] NMI LIVE PAGE 1 RUN TIME: 1425 Specimen Inquiry RUN USER: INTERFACE -- Name: LUÍS MCLAUGHLIN SR Status: REG REF Re11/10/09 Age/Sex: 74/M Unit#: [id number] [facility] : 34 -- Specimen: [id number] Spec Date: 11/10/[address]: Rudy nguyen MD Spec Type: SURGICAL P Received: 11/11/09 Copies to: Cy Rodriguez III, MD SPECIMEN BIOPSY RECTO-SIGMOID COLON AT 16 CM HISTORY POST-OP DIAGNOSIS: Mild sigmoid diverticulosis, right cele enodule, design intern al hemorrhoids CLINICAL INFORMATION: History colon tumor GROSS DESCRIPTION Specimen received in formalin labelled Luís Mclaughlin, Biopsy Rectosigmoid Colon at 16 cm. and consists of three fragments of souza-brown tissue measuring 0.4 x 0.4 x 0.4 cm. DIAGNOSIS Rectosigmoid, at 16 cm., biopsy: Hyperplastic polyp. Signed Electronically by: ASHANTI FELIPE 11/12/09 1425 -- -- DEPARTMENT OF PATHOLOGY, [address] [place] [address] [facility] Permit #[id number] Eduard Aguero M.D. Director Luminita MarinescLory zarateor -- 38 Warning: A positive result is not useful for establishing a diagnosis of syphilis. In most situations, such a result may reflect a prior treated infection; a negative result can exclude a diagnosis of syphilis except for incubating or early primary disease. 39 * SERUM LEVELS OF PSA MEASURED USING THE LALA Apttus ACCESS HYBRITECH IMMUNOASSAY SHOULD NOT BE INTERPRETED ABSOLUTE EVIDENCE OF THE PRESENCE OR ABSENCE OF DISEASE. THE PSA VALUE SHOULD BE USED IN CONJUNCTION WITH OTHER PERTINENT CLINICAL DIAGNOSTIC PROCEDURES. A PSA value in the range of 0.1 to 0.6 ng/ml is indeterminate if being used as an indicator of recurrent or residual disease. . 40 CHOLESTEROL INTERPRETATION: Desirable: Less than 200 MG/DL Borderline-High Risk: 200-239 MG/DL High-Risk: 240 MG/DL and over 41 HDL INTERPRETATION: Undesirable: High Risk: Less than 40 MG/DL Desirable: Low Risk: Greater than 60 MG/DL 42 LDL INTERPRETATION: Low Risk Optimal Level: LDL Less than 100 MG/DL Near or Above Optimal: LDL 100-129 MG/DL Borderline High Risk: LDL 130-159 MG/DL High Risk: LDL 160-189 MG/DL Very High Risk: LDL Greater than 189 MG/DL 43 Anion gap measurement may be of limited value in the presence of any alkalosis, especially in a combined acid base disorder. . 44 Note change in reference range as of 04/25/08. The change was based on recommendations from the [place] [employer]. 45 Please note change in reference range effective 08 . 46 A metabolite of Naproxen, O-desmethylnaproxen, has been shown to interfere with the Jendrassik-Maxatawny method for measuring total bilirubin. Samples from patients who have taken Naproxen have shown spurious elevation in total bilirubin levels. 47 Because ethnic data is not always readily [...] 15-29 5 Kidney failure <15 (or dialysis) 48 SMOKING MAY INCREASE VALUES SERUM LEVELS OF CEA MEASURED USING THE Kobojo ACCESS IMMUNOASSAY SYSTEM SHOULD NOT BE INTERPRETED ABSOLUTE EVIDENCE OF THE PRESENCE OR ABSENCE OF DISEASE. THE CEA VALUE SHOULD BE USED IN CONJUNCTION WITH OTHER PERTINENT CLINICAL DIAGNOSTIC PROCEDURES. 49 CHOLESTEROL INTERPRETATION: Desirable: Less than 200 MG/DL Borderline-High Risk: 200-239 MG/DL High-Risk: 240 MG/DL and over 50 HDL INTERPRETATION: Undesirable: High Risk: Less than 40 MG/DL Desirable: Low Risk: Greater than 60 MG/DL 51 LDL INTERPRETATION: Low Risk Optimal Level: LDL Less than 100 MG/DL Near or Above Optimal: LDL 100-129 MG/DL Borderline High Risk: LDL 130-159 MG/DL High Risk: LDL 160-189 MG/DL Very High Risk: LDL Greater than 189 MG/DL 52 Anion gap measurement may be of limited value in the presence of any alkalosis, especially in a combined acid base disorder. . 53 Please note change in reference range effective 08 . 54 * SERUM LEVELS OF PSA MEASURED USING THE Kobojo ACCESS HYBRITECH IMMUNOASSAY SHOULD NOT BE INTERPRETED ABSOLUTE EVIDENCE OF THE PRESENCE OR ABSENCE OF DISEASE. THE PSA VALUE SHOULD BE USED IN CONJUNCTION WITH OTHER PERTINENT CLINICAL DIAGNOSTIC PROCEDURES. A PSA value in the range of 0.1 to 0.6 ng/ml is indeterminate if being used as an indicator of recurrent or residual disease. . Procedures Date CPT Code Description Status 04/03/2018 33281 Inject/Drain Joint/Bursa Major W/O US Completed 12/24/2015 98214 Plethysmography Determination Lung Volumes & Per Airway Completed Resist 12/24/2015 03228 Pulmonary Function><Bronchodil Completed 03/31/2010 47983 EKG Tracing & Interpretation Completed 11/10/2009 Colonoscopy Completed 10/07/2009 33712 EKG Tracing & Interpretation Completed 12/02/2004 Colonoscopy Completed 07/20/2000 Colonoscopy Completed Encounters Type Date Location Provider CPT E/M Dx Office Visit 04/03/2018 [facility] Kelly Damian M.D. 46568 M25.562 10:30a [facility] M25.462 M17.12 Office Visit 08/23/2017 9:20a [facility] Cy Rodriguez, 98893 R20.8 - Mark Henley Office Visit 07/20/2017 3:20p [facility] Cy Rodriguez, 25081 Z01.818 - Mark Henley H26.9 I10 K21.9 Z85.46 Z85.038 R20.8 E78.2 I73.9 Z23 Office Visit 06/16/2016 10:00a [facility] Cy Rodriguez, 23741 I10 Mark Henley G25.0 Z23 Office Visit 01/05/2016 10:20a [facility] Cy Rodriguez, 36420 R10.32 - Cora Henley R06.2 Office Visit 12/16/2015 10:00a [facility] Cy Rodriguez, 21795 Z00.00 - Cora Henley I10 K21.9 Z85.46 Z85.038 G25.0 R06.2 Office Visit 05/26/2015 11:00a [facility] Cy Rodriguez, 66474 I10 Cora Henley R20.8 Z23 R20.2 V04.81 Office Visit 08/09/2013 9:30a [facility] Armaan Chaparro, 87991 380.4 - Cora Henley,FACP Office Visit 08/15/2012 9:00a [facility] Cy Rodriguez, 91070 333.1 - Cora Henley 796.2 Office Visit 05/15/2012 9:00a [facility] Cy Rodriguez, 05314 401.1 - Cora Henley 333.1 V04.81 Office Visit 03/13/2012 9:20a [facility], 43053 401.1 - Cora Henley 333.1 Office Visit 05/28/2011 10:00a DO Not Use [facility] AT Nurse Visit [facility] 59590 380.4 [facility] Office Visit 11/11/2010 11:40a DO Not Use [facility] AT [facility], 62720 053.9 [facility] Office Visit 11/06/2010 9:40a DO Not Use [facility] AT [facility], 98285 789.07 [facility] 796.2 Office Visit 10/29/2010 9:00a DO Not Use [facility] AT [facility], 30394 V70.0 [facility] 530.81 333.1 782.0 796.2 V10.46 Office Visit 03/31/2010 10:20a DO Not Use [facility] AT [facility], 10084 V72.81 [facility] 530.81 333.1 782.0 796.2 Office Visit 11/26/2009 2:20p DO Not Use [facility] AT [facility], 09165 333.1 [facility] 782.0 Office Visit 10/07/2009 9:00a DO Not Use [facility] AT [facility], 92403 530.81 [facility] 782.0 V10.46 724.02 272.0 Office Visit 04/29/2009 10:30a [facility] AT [facility], 27489 530.81 [facility].DMana 796.2 782.0 V10.46 Office Visit 10/30/2008 10:30a [facility] AT [facility], 19429 472.0 [facility].D. 724.02 Office Visit 03/18/2008 9:00a [facility] AT [facility], 15694 796.2 [facility].D. 530.81 V06.5 Office Visit 09/13/2007 10:15a [facility] AT [facility], 78925 530.81 [facility] Lory Plan of Care Future Appointment(s):10/23/2018 1:00 pm - Cy Rodriguez M.D. at [facility] - Wqlnuknku80/24/2018 2:00 pm - Kelly Damian M.D. at [facility]05/11/2018 1:30 pm - Kelly Damian M.D. at [facility]04/20/2018 - Cy Rodriguez M.D.Z01.810 Encounter for preprocedural cardiovascular examinationNew Labs:Urinalysis ProfileNew Orders:EKGComments:No contraindications to planned knee surgery; pre- op labs ordered.Follow up:wellness exam in 6 months or prnM17.12 Unilateral primary osteoarthritis, left kneeComments:L TKA [id number] Essential (primary) hypertensionComments:BPs acceptable; continue Rx, home BP eylkmwF96.2 Mixed hyperlipidemiaComments:Diet Rx only; LDL 76, TG 208 in JulK21.9 Gastro- esophageal reflux disease without esophagitisComments:Stable with RxZ85.46 Personal history of malignant neoplasm of prostateComments:No c/oZ85.038 Personal history of malignant neoplasm of large intestineComments:(+) chronic loose stools, stable with RxH61.23 Impacted cerumen, bilateralComments:Ear lavage done
[2018-05-11] MEDS ORDERED: celeCOXIB CAP* 100 MG ONE (10:18)
[2018-05-11] MEDS ORDERED: ceFAZolin 2 GM PREMIX in ORs 2 GM/50 ML BAG IVPB ONE (10:19)
[2018-05-11] MEDS ORDERED: Acetaminophen TAB* 325 MG ONE (10:19)
[2018-05-11] MEDS ORDERED: Gabapentin CAP(*) 300 MG ONE (10:19)
[2018-05-11] MEDS ORDERED: Midazolam* 1 MG/ML 2 ML VIAL (2 MG) ONE (11:33)
[2018-05-11] MEDS ORDERED: fentaNYL* 50 MCG/ML 2 ML VIAL (100 MCG VIAL) ONE (11:33)
[2018-05-11] MEDS ORDERED: ROPIVACAINE 5 MG/ML 30 ML BTL (0.5%) ONE (12:44)
[2018-05-11] MEDS ORDERED: Famotidine IV* 10 MG/ML 2 ML (20 mg) ONE (13:42)
[2018-05-11] MEDS ORDERED: Propofol* 10 MG/ML 20 ML BTL IV PUSH ONE (13:42)
[2018-05-11] MEDS ORDERED: Dexamethasone IV* 4 MG/ML 1 ML (4 MG) ONE (13:42)
[2018-05-11] MEDS ORDERED: Nalbuphine* 10 MG/ML 1 ML VIAL IV PRN (15:45)
[2018-05-11] MEDS ORDERED: HYDROcodone/ACETAMIN 5-325 MG* 1 TAB PO PRN (15:45)
[2018-05-11] MEDS ORDERED: Naloxone* 0.4 MG/ML 1 ML VIAL IV PRN (15:45)
[2018-05-11] MEDS ORDERED: PROCHLORPERAZINE INJ 5 MG/ML 2 ML VIAL IV PRN (15:45)
[2018-05-11] MEDS ORDERED: fentaNYL* 50 MCG/ML 2 ML VIAL (100 MCG VIAL) IV PRN (15:45)
[2018-05-11] MEDS ORDERED: Acetaminophen TAB* 325 MG PO PRN (15:45)
[2018-05-11] MEDS ORDERED: Ondansetron INJ* 2 MG/ML VIAL IV PRN ×2 (15:45→15:54)
[2018-05-11] MEDS ORDERED: DiMENhydriNATE IV* 50 MG/ML VIAL IV PUSH PRN (15:45)
[2018-05-11] MEDS ORDERED: Bisacodyl SUPP* 10 MG SUPP PR PRN (15:54)
[2018-05-11] MEDS ORDERED: Magnesium Hydroxide LIQ* 30 ML UDC PO PRN (15:54)
[2018-05-11] MEDS ORDERED: oxyCODONE/Acetamin 5/325 MG* TAB PO PRN (15:54)
[2018-05-11] MEDS ORDERED: Ondansetron TAB* 4 MG PO PRN (15:54)
[2018-05-11] MEDS ORDERED: Polyethylene Glycol 3350* 17 GM PACKET PO PRN (15:54)
[2018-05-11] MEDS ORDERED: diPHENhydraMINE IV* 50 MG/ML 1 ml VIAL (BENADRYL) IV PRN (15:54)
[2018-05-11] MEDS ORDERED: Cyclobenzaprine TAB* 10 MG PO PRN (15:54)
[2018-05-11] MEDS ORDERED: Morphine INJ* 2 MG/ML 1 ML SYRINGE (TWO MG - NEW SYRINGE VERSION) IV PRN (15:54)
[2018-05-11] MEDS ORDERED: Zolpidem TAB* 10 MG PO PRN (16:00)
--- NOTE | 2018-05-11 16:43 | PN ---
Progress Note - Progress Note Date of Service: 05/11/18 SOAP: Patient seen at bedside POD 0 s/p LTK. He feels well with well controlled pain. Dressing CDI. DF/PF intact. DP2+. Sensation decreased though intact distally.
[2018-05-11] MEDS ORDERED: Warfarin TAB(*) 6 MG PO ONE (17:00)
--- NOTE | 2018-05-11 17:36 | RAD ---
INDICATION: Status post left total knee arthroplasty COMPARISON: None TECHNIQUE: 2 view radiograph of the left knee. FINDINGS: In the AP and lateral views the left knee prosthesis is anatomically aligned. There is no evidence of periprostatic fracture. IMPRESSION: Anatomic alignment of recently installed left knee prosthesis.
[2018-05-11] MEDS: Acetaminophen TAB* 325 MG PO SCH (18:38)
[2018-05-11] MEDS: Diltiazem CD CAP* 120 MG PO SCH (18:41)
[2018-05-11] MEDS: Omeprazole CAP* 20 MG PO SCH (18:42)
[2018-05-11] MEDS: oxyCODONE/Acetamin 5/325 MG* TAB PO PRN (21:13)
[2018-05-11] MEDS: Magnesium Hydroxide LIQ* 30 ML UDC PO SCH (21:14)
[2018-05-11] MEDS: ceFAZolin 1 GM in Dextrose (*) 1 GM/50 ML BAG IVPB SCH (21:15)
--- NOTE | 2018-05-11 21:27 | CONS ---
CC: Dr. Rodriguez; Dr. Damian * CONSULTATION REPORT: DATE OF CONSULT: 05/11/18 PRIMARY CARE PROVIDER: Dr. Rodriguez. ORTHOPEDIC SURGEON: Dr. Damian. REASON FOR CONSULT: The consultation was requested by Dr. Damian for postoperative management of the patient with history of hypertension. CHIEF COMPLAINT: Status post left total knee replacement. HISTORY OF PRESENT ILLNESS: Luís Mclaughlin is an 82-year-old male with history of hypertension as well as prostate cancer. He is status post a left knee surgery performed by Dr. Damian today. Postoperatively, he feels very well. He has spinal anesthesia and it appears to be that he has had no complications. He was seen in the postoperative unit. PAST MEDICAL HISTORY: 1. History of hypertension. 2. History of hyperlipidemia. 3. History of gastroesophageal reflux disease. 4. History of colon cancer, status post resection in 1990. 5. History of prostate cancer, status post prostatectomy in 2002. PAST SURGICAL HISTORY: 1. History of cholecystectomy in 2002. 2. History of left shoulder surgery in 2004. 3. History of right knee arthroscopy in 2009. 4. Appendectomy in 1953. MEDICATIONS AT HOME: Include: 1. Diltiazem CD 120 mg daily. 2. Omeprazole 40 mg daily. 3. Prevalite 1 tab in a.m. 4. Ambien 5 mg daily p.r.n. ALLERGIES: No known drug allergies. FAMILY HISTORY: Positive for mother with uterine cancer, father with prostate cancer. SOCIAL HISTORY: The patient is retired, lives with his , who is his surrogate. He denies any alcohol, tobacco, or drug use. REVIEW OF SYSTEMS: The patient denies any chest pain or shortness of breath. He did well with his anesthesia. He does not have at this point any postoperative pain. All the remaining 12 systems were reviewed with the patient and were otherwise negative. PHYSICAL EXAM: Blood pressure of 160/90, heart rate of 53 and regular, respiratory rate 21, oxygen saturation 94% on room air, temperature of 96.8. General: The patient is a very pleasant 82-year-old male, who is in no acute distress. Alert, awake, and oriented x3. HEENT: Head: Atraumatic, normocephalic. Eyes: Pupils are equal and reactive to light and accommodation. Oropharynx is clear. Mucosa moist. Neck: Supple. No JVD. No bruits bilaterally. Cardiovascular: Regular rate and rhythm. No murmur. Respiratory: Clear to auscultation bilaterally. Abdomen: Soft, nontender. Bowel sounds are present in all 4 quadrants. Extremities: There is no edema. Pulses are +2 bilaterally. There is no clubbing or cyanosis. The postoperative left knee is in Cryo unit at this point. The surgical dressings were not removed for wound inspection. Neuro Evaluation: Speech clear. Cranial nerves II through XII are grossly intact. Motor strength is 5/5 bilaterally. LABORATORY DATA: Currently none. ASSESSMENT AND PLAN: 1. In regards to the patient's hypertension, the patient's diltiazem is going to be continued in the morning. 2. For his history of gastroesophageal reflux disease, his omeprazole is going to be continued in the morning also. 3. In regards to the patient's postoperative management of status post left total knee replacement, that is per Dr. Damian's service. 4. For DVT prophylaxis, after surgery, the patient is placed on Lovenox and bridging to Coumadin as per orthopedic service. Thank you very much for allowing our service to see the patient in consultation. At this point, we will sign off and see the patient on an as- needed basis. TIME SPENT: Approximately 55 minutes was spent on the patient's consultation, more than half that time was spent [id number] with the patient during the interview and physical exam. [id number]/[facility] #: [id number] BO
[2018-05-12] MEDS: Acetaminophen TAB* 325 MG PO SCH ×3 (02:58→16:00)
[2018-05-12] MEDS: ceFAZolin 1 GM in Dextrose (*) 1 GM/50 ML BAG IVPB SCH ×2 (05:44→13:46)
[2018-05-12 05:49] LABS: Hematocrit 39 % (42-52); Hemoglobin 12.7 g/dl (14.0-18.0); Mean Platelet Volume 7.1 um3 (7.4-10.4); Platelet Count 367 10^3/ul (150-450)
[2018-05-12 05:51] LABS: INR 0.91 (0.77-1.02)
[2018-05-12] MEDS: oxyCODONE/Acetamin 5/325 MG* TAB PO PRN (05:51)
--- NOTE | 2018-05-12 07:12 | PN ---
Progress Note - Progress Note Date of Service: 05/12/18 SOAP: Subjective: Pt. is doing well, severe pain overnight, controlled this AM. Objective: Vital Signs: Temp Pulse Resp BP Pulse Ox 99.3 F 85 18 114/75 96 05/12/18 03:46 05/12/18 03:46 05/12/18 05:51 05/12/18 03:46 05/12/18 03:46 Laboratory Results - last 24 hr 05/12/18 05/12/18 05/12/18 05:10 05:10 05:10 Hgb 12.7 L Hct 39 L Plt Count 367 MPV 7.1 L INR (Anticoag Therapy) 0.91 Sodium 137 Potassium 4.1 Chloride 106 Carbon Dioxide 24 Anion Gap 7 BUN 16 Creatinine 1.03 Est GFR ( Amer) 83.5 Est GFR (Non-Af Amer) 69.0 BUN/Creatinine Ratio 15.5 Glucose 129 H Calcium 8.7 LLE - dressing c/d/i, distally +df/pf, full sens lt, 2+ dp pulse. Assessment: 82 yo M pod 1 s/p LTKA Plan: coumadin with lovenox bridge pt/ot - wbat lle plan home with vns 05/13
[2018-05-12] MEDS: oxyCODONE TAB* 5 MG TAB PO PRN ×2 (08:15→11:56)
[2018-05-12] MEDS: Magnesium Hydroxide LIQ* 30 ML UDC PO SCH ×2 (08:17→20:32)
--- NOTE | 2018-05-12 09:31 | OP ---
DATE OF OPERATION: 05/11/18 - ROOM #[id number] DATE OF : 33 ATTENDING SURGEON: Kelly Damian MD APPLICATION PACKAGING CONSULTANT: PAULA Borden. Ms. Richmond did help throughout the procedure with preparation of the leg, wound retraction, manipulation of the knee, and wound closure. ANESTHESIOLOGIST: Dr. Kirk. ANESTHESIA: Spinal. PRE-OP DIAGNOSIS: Severe end-stage degenerative osteoarthritis of the left knee joint. 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 OPERATIVE PROCEDURE: Left total knee arthroplasty. TOURNIQUET TIME: 51 minutes. COMPLICATIONS: None. ESTIMATED BLOOD LOSS: 300 cc. SPECIMEN: Bone and cartilage from the left knee joint sent to pathology. HARDWARE USED: This is cemented [employer] total knee arthroplasty hardware. Two packages of Simplex bone cement. For the femur, a left size 7 Legion posterior stabilized femoral component. For the tibia, a left size 6 tibial base plate Lluvia II. For the patella, a 38-mm 3-peg all-poly patella. For the insert, an 11-mm constrained articular insert, size 5/6. BRIEF HISTORY/INDICATIONS: Mr. Mclaughlin is an 82-year-old gentleman who has years of increasingly severe left knee pain and deformity. He elected to undergo left total knee arthroplasty due to continued pain and decreased quality of life. He failed conservative treatment with the anti-inflammatories , pain medication, intraarticular injections, and physical therapy. Radiographs showed [id number] arthritis. Informed consent was obtained from the patient. He understood the risks of surgery included, but were not limited to bleeding, infection, damage to nearby structures, continued pain, need for further surgery, intraoperative fracture, nerve palsy, hardware failure or loosening, knee stiffness, loss of motion, stroke, heart attack, blood clot, and . He wished to proceed. INTRAOPERATIVE FINDINGS: Intraoperatively, the patient was noted to have severe end-stage arthritis. He had full-thickness loss of cartilage in all 3 compartments. He had a flexion contracture of 20 degrees to start the case. He had significant MCL incompetence noted from the start of the case. DESCRIPTION OF PROCEDURE: Mr. Mclaughlin was identified in the preanesthesia unit. His left lower extremity was marked as the correct operative side. Informed consent was signed and placed in the chart. The patient was taken to the operating room and placed under spinal anesthesia. A Manzanares catheter was placed. Tourniquet was placed on the left thigh. The left lower extremity was prepped and draped in the usual sterile fashion. Preop time-out was made to correctly identify the patient, side, and site. Appropriate perioperative antibiotics were given within 1 hour of incision. Tourniquet was inflated and total tourniquet time for this procedure was 51 minutes. A midline incision was made and continued down to the extensor mechanism. A new 10-blade was used to make a standard medial parapatellar arthrotomy. Patella was subluxed laterally. Electrocautery was used to subperiosteally elevate the soft tissue off the superomedial tibia to the mid sagittal plane. It was noted that the MCL was incompetent, although there were intact fibers. The knee was flexed up. The anterior horn of the lateral meniscus and ACL remaining were sharply released. A drill was used to enter the distal femur. Intramedullary distal femoral cutting guide was pinned on the distal femur. Oscillating saw was used to make the distal femoral cut and 2 additional millimeters were taken because of the severe flexion contracture. External rotation guide was pinned on the distal femur. Distal femur was sized to a size 7. The size 7 multi-cutting jig was pinned on the distal femur. Oscillating saw was used to make the appropriate 4 chamfer cuts. The PCL was completely released and the tibia was subluxed anteriorly. Extramedullary tibial cutting guide was pinned on the proximal tibia. Oscillating saw was used to make a proximal tibial cut perpendicular to the mechanical axis of the tibia. Bone was carefully removed. The knee was brought out into full extension. A spacer block had good fit. Medial and lateral ligaments were well balanced. Once again, some MCL laxity and incompetence was noted. The flexion and extension gaps were well balanced. The knee was flexed up. Lamina vp cardiovascular was placed both medially and laterally. Any remaining meniscus was carefully removed using electrocautery. Curved osteotome was used to remove any posterior osteophytes. Tibial tray and drop yelena were placed and once again confirmed a satisfactory tibial cut. A size 7 left femoral trial was impacted onto the distal femur and had excellent stability and fit. The box for the posterior stabilized implant was prepared using reamer and box cut osteotome. A size 6 tibial tray trial with an 11-mm insert trial was placed. The knee was taken through a range of motion. The knee had full extension to 130 degrees of flexion with satisfactory patellofemoral tracking. The patella was everted. A 9 mm of patellar bone and cartilage were carefully removed using an oscillating saw. Patella was sized to a size 38. Three peg holes were drilled through the size 38 guide. A trial size 38 patella was placed and the knee was taken through a range of motion. There was satisfactory patellofemoral tracking. All implant trials were carefully removed. The tibia was subluxed anteriorly and sized to a size 6. Proximal tibia was prepared using a size 6 keel punch. All bony cut surfaces were copiously irrigated with sterile saline and dried. Final implants were cemented into place starting with the tibia followed by the femur and last the patella. A 11-mm insert trial was placed and the knee was brought out into full extension. Tourniquet was turned down at 51 minutes. Electrocautery was used to obtain meticulous hemostasis. The knee was copiously irrigated with sterile saline. Once the cement had fully cured, the insert trial was removed. Any excess cement was removed from around the capsule and implants. Final insert chosen was an 11 mm constrained articular insert size 5/6. This was locked into position on the tibial tray. Stability of the insert was checked and rechecked and noted to be stable. The knee was once again copiously irrigated with sterile saline. Extensor mechanism was closed using interrupted #1 Vicryl. The rest of the incision was closed in a layered fashion using 0 and 2-0 Vicryl. Skin was closed using running 3-0 nylon suture. Sterile Xeroform, 4x4's, and Webril were used to cover the incision. Rigoberto wrap and cold pack were placed over this. The patient's anesthesia was reversed without difficulty. He was taken to the PACU in stable condition. Intended weightbearing will be weightbearing as tolerated. Intended DVT prophylaxis will be Coumadin with a Lovenox bridge. [id number]/[facility] #: [id number] BO
[2018-05-12] MEDS: Enoxaparin(*) 40 MG/0.4 ML SYR SUBCUT SCH (11:56)
[2018-05-12] MEDS: Diltiazem CD CAP* 120 MG PO SCH (16:01)
[2018-05-12] MEDS: Omeprazole CAP* 20 MG PO SCH (16:01)
[2018-05-12] MEDS ORDERED: Warfarin TAB(*) 4 MG PO ONE (17:00)
[2018-05-13] MEDS: Acetaminophen TAB* 325 MG PO SCH ×2 (03:47→10:14)
[2018-05-13 06:14] LABS: Hematocrit 35 % (42-52); Hemoglobin 11.6 g/dl (14.0-18.0); Mean Platelet Volume 6.9 um3 (7.4-10.4); Platelet Count 324 10^3/ul (150-450)
[2018-05-13 06:20] LABS: INR 1.31 (0.77-1.02)
[2018-05-13] MEDS: Magnesium Hydroxide LIQ* 30 ML UDC PO SCH (07:33)
[2018-05-13] MEDS: oxyCODONE/Acetamin 5/325 MG* TAB PO PRN ×2 (07:37→12:20)
[2018-05-13 07:59] VITALS: BP 127/65
[2018-05-13] MEDS ORDERED: Bisacodyl SUPP* 10 MG SUPP PR ONE (08:16)
--- NOTE | 2018-05-13 08:16 | PN ---
Progress Note - Progress Note Date of Service: 05/13/18 SOAP: Subjective: resting comfortable with continued complaints of moderate knee pain; no calf pain/sob Objective: Vital Signs Temp Pulse Resp BP Pulse Ox 98.7 F 80 20 127/65 94 05/13/18 07:29 05/13/18 07:29 05/13/18 07:37 05/13/18 07:29 05/13/18 07:29 Laboratory Last Values Hgb 11.6 g/dl (14.0-18.0) L 05/13/18 05:49 Hct 35 % (42-52) L 05/13/18 05:49 Plt Count 324 10^3/ul (150-450) 05/13/18 05:49 MPV 6.9 um3 (7.4-10.4) L 05/13/18 05:49 INR (Anticoag Therapy) 1.31 (0.77-1.02) H 05/13/18 05:49 Sodium 137 mmol/L (135-145) 05/12/18 05:10 Potassium 4.1 mmol/L (3.5-5.0) 05/12/18 05:10 Chloride 106 mmol/L (101-111) 05/12/18 05:10 Carbon Dioxide 24 mmol/L (22-32) 05/12/18 05:10 Anion Gap 7 mmol/L (2-11) 05/12/18 05:10 BUN 16 mg/dL (6-24) 05/12/18 05:10 Creatinine 1.03 mg/dL (0.67-1.17) 05/12/18 05:10 Est GFR ( Amer) 83.5 (>60) 05/12/18 05:10 Est GFR (Non-Af Amer) 69.0 (>60) 05/12/18 05:10 BUN/Creatinine Ratio 15.5 (8-20) 05/12/18 05:10 Glucose 129 mg/dL (70-100) H 05/12/18 05:10 Calcium 8.7 mg/dL (8.6-10.3) 05/12/18 05:10 incision: c/d; dressing changed Assessment: s/p left TKA Plan: 1) PT/OT-WBAT 2) continue coumadin/lovenox 3) possibly home today if passes PT goals
[2018-05-13] MEDS: Enoxaparin(*) 40 MG/0.4 ML SYR SUBCUT SCH (12:18)
--- NOTE | 2018-05-14 19:17 | DS ---
DISCHARGE SUMMARY: DATE OF ADMISSION: 05/11/18 DATE OF DISCHARGE: 05/13/18 SURGEON: Kelly Damian MD * (DICTATED BY PAULA OSUNA) PRINCIPAL DIAGNOSIS: Left knee osteoarthritis. DISCHARGE DIAGNOSIS: Left knee osteoarthritis. HISTORY OF PRESENT ILLNESS: Mr. Mclaughlin is an 82-year-old gentleman with end- stage osteoarthritis of the left knee. He had failed conservative treatment and elected to proceed with a left total knee arthroplasty. HOSPITAL COURSE: Mr. Mclaughlin was admitted electively to the hospital on and underwent a left total knee arthroplasty, which he tolerated well. Postoperatively, he was placed on Lovenox and Coumadin. On postoperative day 1, his H and H was 12 and 39; on postop day 2, 11 and 35. His INR went from 0.9 to 1.31. At the time of discharge, he was afebrile, his vital signs were stable , and his wound was clean and dry. DISCHARGE MEDICATIONS: 1. Percocet 5/325 one to two tabs every 4 to 6 hours. 2. Colace 100 mg 2 to 3 tabs daily for constipation. 3. Flexeril 10 mg tabs 2 to 3 times a day for muscle spasms. 4. Coumadin 2 mg tabs. 5. Cardizem 120 mg daily. 6. Ambien 10 mg q.h.s. as needed. PHYSICAL EXAM UPON DISCHARGE: His wound was clean, dry, and healing well. He was ambulating well with the aide of a walker and he was distally neurovascularly intact. DISCHARGE INSTRUCTIONS: He was discharged to home. He was given a prescription for Percocet for pain as well as Flexeril and Colace. He was given Coumadin and told to take 8 mg of Coumadin Tuesday night, 8 mg Tuesday night. VNS will recheck his INR on Tuesday. He is weightbearing as tolerated. He will follow up with Dr. Damian in 2 weeks. PAULA OSUNA [id number]/[facility] #: [id number] [facility]
== END 2018-05-13 13:05 | disposition home or self-care (01) | DRG 470 ==
LOC: AA 09:59 → SSU 15:54
PROVIDERS: ADMIT Orthopaedic Surgery Adult Reconstructive Orthopaedic Surgery; ATTEND Orthopaedic Surgery Adult Reconstructive Orthopaedic Surgery
PROC: 0SRD0J9 Replacement of Left Knee Joint with Synthetic Substitute, Cemented, Open Approach (ICD-10-PCS; principal; 2018-05-11 13:00)
DX: M17.12 Unilateral primary osteoarthritis, left knee (principal); I10 Essential (primary) hypertension; M25.762 Osteophyte, left knee; E78.5 Hyperlipidemia, unspecified; K21.9 Gastro-esophageal reflux disease without esophagitis; M24.562 Contracture, left knee; Z85.46 Personal history of malignant neoplasm of prostate; Z85.038 Personal history of other malignant neoplasm of large intestine; Z79.899 Other long term (current) drug therapy; Z82.49 Family history of ischemic heart disease and other diseases of the circulatory system; Z80.42 Family history of malignant neoplasm of prostate; Z80.49 Family history of malignant neoplasm of other genital organs
CPT/HCPCS: 36415; 80048; 85014; 85018; 85049; 85610; A9270-GY; C1776; G8978-GP-CI; G8978-GP-CJ; G8978-GP-CK; G8979-GP-CI; G8980-GP-CI; G8987-GO-CJ; G8988-GO-CJ; G8989-GO-CJ; J0690; J1100; J1650; J2250; J2270; J2704; J2795; J3010